=== PATIENT | female | born 1965 | race Caucasian/White ===

== ENCOUNTER 2021-02-11 15:15 | Inpatient (IN) | payer MEDICARE, SELFPAY ==
[2021-02-11] VITALS (10 sets, daily range): BP systolic 78–117; BP diastolic 41–69; PULSE 59–74; RESP 16–20; TEMP 36.6–37.1; O2SAT 87–95; BMI 31.7; BMI 31.9
--- NOTE | 2021-02-11 15:33 | EX.ED.DYSGE1 ---
HPI History of Present Illness Chief Complaint: General Illness Narrative Narrative: Patient presenting for evaluation secondary to generalized illness. Patient reports that she had a positive sick contact with coronavirus, and states that over the course of the last week she has been having typical symptoms. She states that it has been associated with fevers and chills, a minimally productive cough. She has decreased appetite. She denies any nausea or vomiting, but she does report that she had some loose watery diarrhea. Patient denies any chest pain. She does report that she is coughed up blood just a couple of times. Patient denies that she has significant shortness of breath, no underlying lung disease history. She does have a underlying history of hypertension. Review of systems otherwise negative. PFSH PFSH Home Medications dexamethasone [Decadron] 6 mg PO DAILY #5 tab 02/11/21 [Rx Last Taken Unknown] lisinopril-hydrochlorothiazide 1 tab PO DAILY 02/11/21 [History Last Taken Unknown] paroxetine HCl [Paxil] 15 mg PO DAILY 02/11/21 [History Last Taken Unknown] Allergy/AdvReac Type Severity Reaction Status Date / Time No Known Allergies Allergy Verified 02/11/21 15:18 Social History Smoking Status: Never smoker ROS [facility] ED Constitutional Constitutional ED: Reports chills and fever(s) ENT ENT ED: Denies rhinorrhea Cardiovascular Cardiovascular: Denies chest pain Respiratory/Chest Respiratory/Chest: Reports cough; Denies dyspnea Gastrointestinal Gastrointestinal: Reports other Details: Loss of appetite ; Denies abdominal pain, diarrhea, nausea or vomiting Genitourinary Genitourinary ED: Denies dysuria or hematuria Musculoskeletal Musculoskeletal: Reports myalgias; Denies back pain Integumentary Denies rash Neurologic Neurologic: Denies paresthesias or weakness Psychiatric Psychiatric: Denies depression Endocrine Endocrinology: Denies fatigue Allergic/Immunologic Allergic/Immunologic ED: Denies urticaria EXAM Physical Exam Const Vital Signs: 02/11/21 15:18 02/11/21 15:43 02/11/21 15:47 Temperature 98.6 F Temperature Source Oral Pulse Rate 74 65 Respiratory Rate 16 20 H Respiratory Pattern Normal Blood Pressure 105/57 L Blood Pressure Mean 73 Pulse Ox 92 95 Oxygen Delivery Method Room Air Room Air Positive well nourished and well developed General Appearance ED: well developed and NAD HEENT Reports moist mucous membranes Negative for trauma or tenderness Eyes EOMs intact bilaterally Neck no lymphadenopathy, supple and no JVD Chest Wall inspection of chest normal Resp normal respiratory effort and clear to auscultation bilaterally Cardio regular rate, regular rhythm, no murmurs and peripheral pulses 2+ throughout GI normal to inspection, nondistended, normoactive bowel sounds, non-tender and no masses Palpation: soft Back/Spine normal to inspection Extremity normal to inspection General Extremety ED: Negative for tenderness Neuro oriented x3 and no sensory deficits noted Sensorium / Orientation: alert Motor Exam: strength 5/5 throughout Psych mental status grossly normal Skin no rashes or lesions noted MDM MDM MDM Narrative Medical decision making narrative: Patient presented with symptoms consistent with likely coronavirus. I did obtain a rapid antigen test which is negative but I feel this likely is a false negative as the patient's chest x-ray seems very consistent with coronavirus as do her symptoms. Patient was ambulated in the emergency department, her saturations hovered around 92 to 90% on ambulation and on rest were about 95% she otherwise had stable vitals no tachycardia no dyspnea and no signs of clinical dehydration. Patient is otherwise healthy and well-appearing, not really think that she requires admission at this point. Due to her borderline oxygenation I will place the patient on a course of Decadron. First dose was given in the emergency department. Patient was educated on signs and symptoms which to return. Patient was discharged in stable condition. Radiography Chest X-Ray - ED: 1 View, Read by ED Physician, Right Infiltrate and Left Infiltrate Diagnostic Testing: Radiology Impression Chest X-Ray 02/11/21 17:00 IMPRESSION: Multilobar pulmonary infiltrates suggesting pneumonia. Electronically Signed: Alexandr Marin MD (Brooks) at 17:15 EDT , Service support , Discharge Plan Triage Chief Complaint: General Illness ED Provider: Abhay Brown Dx/Rx/DC Orders Clinical Impression: COVID-19 Instructions: Coronavirus Disease 2019 (COVID-19): Caring for Yourself or Others Prescriptions: New dexamethasone [Decadron] 6 mg tablet 6 mg PO DAILY Qty: 5 RF: 0 No Action paroxetine HCl [Paxil] 10 mg Tablet 15 mg PO DAILY RF: 0 lisinopril-hydrochlorothiazide 20-12.5 mg Tablet 1 tab PO DAILY RF: 0 Primary Care Provider: Care Physician,No Primary Referrals: Deejay Vidal MD [NON-STAFF] - 3-5 Days Care Physician,No Primary [Primary Care Provider] - Disposition Disposition: Home, self care
--- NOTE | 2021-02-11 17:00 | RAD_ITS ---
STUDY: X-RAY CHEST REASON FOR EXAM: Female, 55 years old. cough TECHNIQUE: AP COMPARISON: None. FINDINGS: Multilobar pulmonary infiltrates in the bilateral lungs. There is no demonstrated pleural abnormality. Normal size heart. Normal mediastinum and palomo. Normal visualized pulmonary arteries. Normal visualized aortic arch and descending thoracic aorta. Normal visualized thoracic spine. Normal visualized ribs, clavicles, and shoulders. There is no demonstrated abnormality of the visualized soft tissue structures of the upper abdomen. RAD/Chest 1 View (Portable) IMPRESSION: Multilobar pulmonary infiltrates suggesting pneumonia. Electronically Signed: Alexandr Marin MD (Brooks) at 17:15 EDT , Service support ,
--- NOTE | 2021-02-11 17:50 | ED.RN ---
pt hypotensive but denies any symptoms. notifed
[2021-02-11 18:23] LABS: Absolute Lymphocyte Count 0.89 X10^3/uL (0.83-4.51); Absolute Neutrophil Count 5.5 X10^3/uL (2.0-7.7); Basophil# 0.02 X10^3/uL; Basophil% 0.3 % (0-1); Hematocrit 36.3 % (37-47); Hemoglobin 12.3 g/dL (12.0-15.0); Lymphocyte # 0.89 X10^3/ul (0.83-4.51); Lymphocyte % 13.2 % (19-41); Mean Corp Hgb Conc 33.9 g/dL (32-36); Mean Corpuscular Hgb 29.6 pg (27.0-32.0); Mean Corpuscular Volume 87.3 fL (81-99); Mean Platelet Vol. 9.2 fl (6.2-12.0); Monocyte# 0.26 X10^3/uL; Monocyte% 3.9 % (0-10); NRBC Flagged by Analyzer 0 % (0-5); Neutrophil % 81.9 % (47-70); Platelet Count 234 K/mm3 (150-450); RBC Distribution Width CV 12.4 % (11.6-14.6); RBC Distribution Width SD 40.2 fl (35.1-43.9); Red Blood Count 4.16 M/mm3 (4.2-5.4); White Blood Count 6.7 K/mm3 (4.4-11.0)
[2021-02-11 18:40] LABS: ALB/GLOB Ratio 0.8 RATIO (0.9-2.4); AST(SGOT) 45 U/L (15-37); Alanine Aminotransfer ALT/SGPT 39 U/L (13-56); Albumin, Serum 3.2 g/dL (3.2-5.0); Alkaline Phosphatase 56 U/L (45-117); Anion Gap 10 (5-15); BUN 26 mg/dL (7-18); BUN/Creat Ratio 17.9 RATIO (10-20); Calcium,Total 8.3 mg/dL (8.5-10.1); Chloride 99 mmol/L (98-107); Creatinine, Serum 1.45 mg/dL (0.55-1.02); EST Glomerular Filtration Rate 40 mL/min (>60); Est Glom Filt Rate - Afr Amer 48 mL/min (>60); Estimated Creatinine Clearance 34.26 ml/min; Globulin 4.2 g/dL (2.2-4.2); Glucose 94 mg/dL (74-106); Potassium 2.8 mmol/L (3.5-5.1); Protein, Total 7.4 g/dL (6.4-8.2); Sodium Level 135 mmol/L (136-145)
[2021-02-11 18:51] LABS: Lactic Acid 0.9 mmol/L (0.4-1.9)
[2021-02-11] MEDS: dexAMETHasone 4 MG Tablet 6 MG PO (18:52)
--- NOTE | 2021-02-11 19:01 | PCM.HP.STD ---
HPI - General HPI Narrative GIOVANNY DANIELLE, is a 55 F who presented to [facility] on 02/11/2021 complaining of not feeling well. She reports that over the last week she has had chills, subjective fevers, mild dry cough, decreased appetite with decrease in sensation of smell and taste, intermittent loose watery diarrhea, but no nausea or vomiting. She reports that she has had sick contacts with COVID-19 with the last being last Friday. She reports she is not been vaccinated. On room air her oxygen saturations have been anywhere from 92 to 95%. I suspect with ambulation she would drop below 92%. She has been afebrile with a normal heart rate and was prescribed Decadron with the intent to discharge her home but then developed acute hypotension. It appears that she may have suffered a vagal event as she had a drop in her heart rate and blood pressure. At that point the emergency department physician would like her admitted given her hypotension. The patient does indicate on my review that her p.o. intake has been poor. Her CBC is fairly unremarkable. Her BMP shows mild hyponatremia with a sodium of 135, hypokalemia with a potassium of 2.8, and elevated BUN and creatinine with a serum creatinine of 1.45. And mild transaminitis. Her rapid Covid test was negative, however her chest x-ray shows multilobular pulmonary infiltrates in bilateral lungs consistent with Covid pneumonia. Covid PCR is pending on admission. She was given Decadron and IV fluids in the emergency department. We will admit her to the intensive care unit given her hypotension. If this resolves and her oxygen status maintained stable she may be able to be discharged tomorrow. [facility] Home Medications dexamethasone [Decadron] 6 mg PO DAILY #5 tab 02/11/21 [Rx Last Taken Unknown] lisinopril-hydrochlorothiazide 1 tab PO DAILY 02/11/21 [History Last Taken Unknown] paroxetine HCl [Paxil] 15 mg PO DAILY 02/11/21 [History Last Taken Unknown] Allergy/AdvReac Type Severity Reaction Status Date / Time No Known Allergies Allergy Verified 02/11/21 15:18 Social History Smoking Status: Never smoker ROS Review of Systems ROS Unobtainable: Denies due to encephalopathy, due to endotracheal tube, due to mental condition, due to mental status or other Constitutional Constitutional: Reports anorexia, chills, fatigue, fever(s), malaise and weakness; Denies night sweats Eyes Eyes: Denies blurry vision, change in eye color, change in vision, discharge from eye(s), double vision, erythema, eye pain, loss of vision or other ENT HEENT: Denies abnormal hearing, dysphagia, ear pain, epistaxis, headache(s), hearing loss, nasal congestion, nasal discharge, post nasal drip, sinus pressure, sore throat or other Cardiovascular Cardiovascular: Denies chest pain, claudication, dyspnea on exertion, edema, lightheadedness, orthopnea, palpitations, paroxysmal nocturnal dyspnea, rapid heart rate, syncope or other Respiratory/Chest Respiratory/Chest: Reports cough, shortness of breath at rest and shortness of breath with exertion; Denies dyspnea, excessive phlegm production, hemoptysis, productive cough, wheezing or other Gastrointestinal Gastrointestinal: Reports diarrhea and loose stools; Denies abdominal pain, coffee ground emesis, constipation, dyspepsia, hematemesis, hematochezia, melena, nausea, vomiting or other Genitourinary Genitourinary: Denies burning urination, difficulty urinating, dysuria, hematuria, nocturia, urinary frequency, urinary hesitancy, urinary incontinence, urinary urgency or other Musculoskeletal Musculoskeletal: Reports myalgias; Denies arthralgias, back pain, joint pain, joint stiffness, joint swelling, neck pain or other Neurologic Neurologic: Denies abnormal gait, abnormal speech, confusion, disequilibrium, dizziness, focal weakness, headache(s), numbness, paresthesias, seizure-like activity, seizures, syncope, tingling, tremor(s) or other Psychiatric Psychiatric: Denies anxiety, depression, homicidal ideation, suicidal ideation or other Endocrine Endocrinology: Denies change in body appearance, cold intolerance, excessive sweating, heat intolerance, polydipsia, polyuria or other Hematologic/Lymphatic Hematologic/Lymphatic: Denies anemia, easy bleeding, easy bruising, lymphadenopathy or other Allergic/Immunologic Allergic/Immunologic: Denies rhinitis, hives, eczemia, asthma or other Vital Signs Vital Signs Vital Signs: 02/11/21 15:18 02/11/21 15:43 02/11/21 15:47 Temperature 98.6 F Temperature Source Oral Pulse Rate 74 65 Respiratory Rate 16 20 H Respiratory Pattern Normal Blood Pressure 105/57 L Blood Pressure Mean 73 Pulse Ox 92 95 Oxygen Delivery Method Room Air Room Air 02/11/21 17:41 02/11/21 18:51 Temperature Temperature Source Pulse Rate 59 L 65 Respiratory Rate 18 20 H Respiratory Pattern Blood Pressure 78/41 L 114/69 Blood Pressure Mean 53 84 Pulse Ox 92 94 Oxygen Delivery Method Room Air Room Air Weight Weight: 78.653 kg Body Mass Index (BMI) 31.7 Physical Exam Const alert, oriented x3, no apparent distress, healthy appearing and well nourished Constitutional Narrative: Middle-aged white female, lying in bed, appears comfortable, blood pressure is improving with fluid bolus General Appearance: cooperative; Negative for uncooperative Orientation / Consciousness: Negative for confused, disoriented or lethargic HEENT normocephalic, head/scalp atraumatic and hearing grossly normal bilaterally HEENT Narrative: Mallampati 2, no thrush, fair dentition Mouth: moist mucous membranes abnormal parched Eyes PERRL, EOMs intact bilaterally and conjunctivae normal Neck no lymphadenopathy, supple, no JVD and no carotid bruits Resp normal respiratory effort, no retractions and no use of accessory muscles Resp Narrative: Diminished diffusely but clear Cardio regular rate, regular rhythm, S1 normal heart sound, S2 normal heart sound, no murmurs, no rub, no gallops, no clicks and no JVD GI normal to inspection, nondistended, normoactive bowel sounds, soft to palpation, non-tender and non-distended; Negative for hepatosplenomegaly Palpation: Negative for tender, guarding or hernia Extremity normal to inspection, full ROM and no clubbing, cyanosis or edema Peripheral Pulses: Yes pulses 2+ throughout Skin no rashes or lesions noted, no wounds, skin turgor normal, no jaundice, no petechiae and no mottling Neuro oriented x3, CN's II-XII intact bilaterally and moves all extremities Sensorium / Orientation: awake, alert, oriented to person, oriented to place and oriented to time Speech: speech normal Motor Exam: strength 5/5 throughout Psych affect normal Results Lab / Micro Data Attestation: I reviewed the patient's lab results. Result Diagrams: 02/11/21 18:10 02/11/21 18:10 Labs: Laboratory Results - last 24 hr 02/11/21 02/11/21 02/11/21 18:10 18:10 18:10 WBC 6.7 RBC 4.16 L Hgb 12.3 Hct 36.3 L MCV 87.3 MCH 29.6 MCHC 33.9 RDW Std Deviation 40.2 RDW Coeff of [place] 12.4 Plt Count 234 MPV 9.2 Immature Gran % (Auto) 0.700 Neut % (Auto) 81.9 H Lymph % (Auto) 13.2 L [place] % (Auto) 3.9 Eos % (Auto) 0.0 Baso % (Auto) 0.3 Absolute Neuts (auto) 5.5 Absolute Lymphs (auto) 0.89 Nucleated RBC % 0 Sodium 135 L Potassium 2.8 L Chloride 99 Carbon Dioxide 26.0 Anion Gap 10 BUN 26 H Creatinine 1.45 H Estim Creat Clear Calc 34.26 Est GFR (MDRD) Af Amer 48 L Est GFR (MDRD) Non-Af 40 L BUN/Creatinine Ratio 17.9 Glucose 94 Lactic Acid 0.9 Calcium 8.3 L Total Bilirubin 0.40 AST 45 H ALT 39 Alkaline Phosphatase 56 Total Protein 7.4 Albumin 3.2 Globulin 4.2 Albumin/Globulin Ratio 0.8 L Micro: Microbiology 02/11/21 15:35 SARS-CoV-2 Antigen (Rapid) - Final Mucosa - Nose Radiology Impression Chest X-Ray 02/11/21 17:00 IMPRESSION: Multilobar pulmonary infiltrates suggesting pneumonia. Electronically Signed: Alexandr Marin MD (Brooks) at 17:15 EDT , Service support , Assessment & Plan Assessment/Plan (1) COVID-19: (2) ROSALINO (acute kidney injury): (3) Hypokalemia: (4) Hypoxia: PLAN: COVID-19 pneumonia -Patient showing relative hypoxemia with oxygen saturations at 92% on room air -I suspect she would drop below 92 with exertion -Start Decadron 6 mg daily x10 days -Supportive care -No current need for remdesivir--> would start if patient develops worsening hypoxia as patient is approximately 6 days into symptoms -PCR pending -Chest x-ray shows multifocal bilateral infiltrates -Check D-dimer Hypotension -Suspect vagal reaction given bradycardia and hypotension at the same time -Hold antihypertensive -IV fluids -Continue to monitor -Lactate was within normal limits ROSALINO secondary to dehydration -Hydration -Repeat BMP in a.m. -Baseline is unknown -Hold lisinopril and HCTZ Mild hyponatremia -Suspect hypovolemic hyponatremia and this should correct with IV hydration -Repeat BMP in a.m. Hypokalemia -Potassium given in the emergency department -Repeat BMP in a.m. -Check a.m. mag History of hypertension -Antihypertensives on hold given hypotension in the emergency department Depression -Continue Paxil Obesity -Complicates overall clinical picture and outcomes DVT prophylaxis -Lovenox twice daily CODE STATUS -Full code Charges/Coding Visit Charges Inpatient E&M: 19974 Init Hosp L3
[2021-02-11] MEDS: Potassium Chloride 10mEq/100mL 10 MEQ/100 ML IV.SOLN. 100 MEQ IV BOLUS ×4 (19:10→23:17)
[2021-02-11] MEDS: Potassium Chloride Oral Tablet 20 MEQ PO (19:22)
[2021-02-11] MEDS: Acetaminophen 500 MG Tablet 1000 MG PO (20:44)
[2021-02-11 21:29] LABS: D-Dimer Quantitative (DVT/PE) 0.52 FEU/ug/m (0.27-0.49)
[2021-02-11] MEDS: 0.9% Normal Saline 1,000 ML 100 ML IV (22:21)
[2021-02-11] MEDS: Enoxaparin 40 MG/0.4 ML Syringe SC (22:21)
[2021-02-12] VITALS (15 sets, daily range): BP systolic 111–146; BP diastolic 49–66; PULSE 57–62; RESP 16–18; TEMP 36.6–37; O2SAT 64–96
[2021-02-12 05:11] LABS: Absolute Lymphocyte Count 0.58 X10^3/uL (0.83-4.51); Basophil# 0.01 X10^3/uL; Basophil% 0.1 % (0-1); Hematocrit 38.1 % (37-47); Hemoglobin 12.6 g/dL (12.0-15.0); Lymphocyte # 0.58 X10^3/ul (0.83-4.51); Lymphocyte % 7.5 % (19-41); Mean Corp Hgb Conc 33.1 g/dL (32-36); Mean Corpuscular Hgb 29.5 pg (27.0-32.0); Mean Corpuscular Volume 89.2 fL (81-99); Mean Platelet Vol. 9.5 fl (6.2-12.0); Monocyte# 0.15 X10^3/uL; Monocyte% 1.9 % (0-10); NRBC Flagged by Analyzer 0 % (0-5); Neutrophil # 6.95 X10^3/uL (2.7-7.7); Neutrophil % 89.9 % (47-70); POSITIVE DIFFERENTIAL YES; POSITIVE MORPHOLOGY YES; Platelet Count 240 K/mm3 (150-450); RBC Distribution Width CV 12.7 % (11.6-14.6); RBC Distribution Width SD 41.6 fl (35.1-43.9); Red Blood Count 4.27 M/mm3 (4.2-5.4); White Blood Count 7.7 K/mm3 (4.4-11.0)
[2021-02-12 05:24] LABS: Anion Gap 5 (5-15); BUN 20 mg/dL (7-18); BUN/Creat Ratio 23.4 RATIO (10-20); Calcium,Total 8.3 mg/dL (8.5-10.1); Chloride 109 mmol/L (98-107); Creatinine, Serum 0.86 mg/dL (0.55-1.02); EST Glomerular Filtration Rate 73 mL/min (>60); Est Glom Filt Rate - Afr Amer 88 mL/min (>60); Estimated Creatinine Clearance 57.77 ml/min; Glucose 147 mg/dL (74-106); Magnesium 2.3 mg/dL (1.6-2.6); Phosphorus 3.5 mg/dL (2.5-4.9); Sodium Level 141 mmol/L (136-145)
[2021-02-12 05:33] LABS: Differential Indicated SCAN CRITERIA MET
--- NOTE | 2021-02-12 07:33 | PCM.PN.HOSP ---
Subjective Subjective Patient is a 55-year-old lady who presented withCough fever and generalized weakness with prior Covid exposure. Patient apparently has not been vaccinated. Her assessment on admission was consistent with acute COVID-19 pneumonitis admitted to intensive care unit for further management Objective Data Objective Data Vital Signs: Vital Signs Temp Pulse Resp BP Pulse Ox 97.8 F 60 16 115/61 94 02/12/21 04:00 02/12/21 04:00 02/12/21 04:00 02/12/21 04:00 02/12/21 04:00 Oxygen Flow Rate (L/min) 2 Oxygen Delivery Method Nasal Cannula Weight: 78.8 kg Body Mass Index (BMI) 31.9 Intake & Output: Intake and Output for Last 24 Hours 02/10/21 02/11/21 02/12/21 23:59 23:59 23:59 Intake Total 793.33 / 793.33 100 / 100 Balance 793.33 / 793.33 100 / 100 Lab / Micro Data Result Diagrams: 02/12/21 04:30 02/12/21 04:30 Labs: Laboratory Results - last 24 hr 02/11/21 02/11/21 02/11/21 18:10 18:10 18:10 WBC 6.7 RBC 4.16 L Hgb 12.3 Hct 36.3 L MCV 87.3 MCH 29.6 MCHC 33.9 RDW Std Deviation 40.2 RDW Coeff of [place] 12.4 Plt Count 234 MPV 9.2 Immature Gran % (Auto) 0.700 Neut % (Auto) 81.9 H Lymph % (Auto) 13.2 L [place] % (Auto) 3.9 Eos % (Auto) 0.0 Baso % (Auto) 0.3 Absolute Neuts (auto) 5.5 Absolute Lymphs (auto) 0.89 Nucleated RBC % 0 D-Dimer Quant (PE/DVT) Sodium 135 L Potassium 2.8 L Chloride 99 Carbon Dioxide 26.0 Anion Gap 10 BUN 26 H Creatinine 1.45 H Estim Creat Clear Calc 34.26 Est GFR (MDRD) Af Amer 48 L Est GFR (MDRD) Non-Af 40 L BUN/Creatinine Ratio 17.9 Glucose 94 Lactic Acid 0.9 Calcium 8.3 L Phosphorus Magnesium Total Bilirubin 0.40 AST 45 H ALT 39 Alkaline Phosphatase 56 Total Protein 7.4 Albumin 3.2 Globulin 4.2 Albumin/Globulin Ratio 0.8 L COVID-19 (IRWIN) 02/11/21 02/11/21 02/12/21 18:30 21:07 04:30 WBC 7.7 RBC 4.27 Hgb 12.6 Hct 38.1 MCV 89.2 MCH 29.5 MCHC 33.1 RDW Std Deviation 41.6 RDW Coeff of [place] 12.7 Plt Count 240 MPV 9.5 Immature Gran % (Auto) 0.600 Neut % (Auto) 89.9 H Lymph % (Auto) 7.5 L [place] % (Auto) 1.9 Eos % (Auto) 0.0 Baso % (Auto) 0.1 Absolute Neuts (auto) 7.0 Absolute Lymphs (auto) 0.58 L Nucleated RBC % 0 D-Dimer Quant (PE/DVT) 0.52 H* Sodium Potassium Chloride Carbon Dioxide Anion Gap BUN Creatinine Estim Creat Clear Calc Est GFR (MDRD) Af Amer Est GFR (MDRD) Non-Af BUN/Creatinine Ratio Glucose Lactic Acid Calcium Phosphorus Magnesium Total Bilirubin AST ALT Alkaline Phosphatase Total Protein Albumin Globulin Albumin/Globulin Ratio COVID-19 (IRWIN) Detected 02/12/21 04:30 WBC RBC Hgb Hct MCV MCH MCHC RDW Std Deviation RDW Coeff of [place] Plt Count MPV Immature Gran % (Auto) Neut % (Auto) Lymph % (Auto) [place] % (Auto) Eos % (Auto) Baso % (Auto) Absolute Neuts (auto) Absolute Lymphs (auto) Nucleated RBC % D-Dimer Quant (PE/DVT) Sodium 141 Potassium 4.0 Chloride 109 H Carbon Dioxide 27.0 Anion Gap 5 BUN 20 H Creatinine 0.86 Estim Creat Clear Calc 57.77 Est GFR (MDRD) Af Amer 88 Est GFR (MDRD) Non-Af 73 BUN/Creatinine Ratio 23.4 H Glucose 147 H Lactic Acid Calcium 8.3 L Phosphorus 3.5 Magnesium 2.3 Total Bilirubin AST ALT Alkaline Phosphatase Total Protein Albumin Globulin Albumin/Globulin Ratio COVID-19 (IRWIN) Micro: Microbiology 02/11/21 15:35 Mucosa - Nose SARS-CoV-2 Antigen (Rapid) - Final Radiography Diagnostic Testing: Radiology Impression Chest X-Ray 02/11/21 17:00 IMPRESSION: Multilobar pulmonary infiltrates suggesting pneumonia. Electronically Signed: Alexandr Marin MD (Brooks) at 17:15 EDT , Service support , Physical Exam Narrative GENERAL: cooperative HEENT: Atraumatic; EYES; Anicteric, Normal Conjunctiva NECK; supple, normal thyroid, RESPIRATORY: Diminished to auscultation CARDIOVASCULAR: Regular S1 S2, GI: soft, normoactive bowel sounds, : No Renal angle tenderness; EXTREMITIES: No edema, no clubbing, MUSCULOSKELETAL: no muscle waisting NEURO: Awake; no lateralizing signs. SKIN: No Rash PSYCH; Flat affect Assessment & Plan Assessment/Plan (1) COVID-19: (2) ROSALINO (acute kidney injury): (3) Hypokalemia: (4) Hypoxia: PLAN: Patient is a 55-year-old lady who presented withCough fever and generalized weakness with prior Covid exposure. Patient apparently has not been vaccinated. Her assessment on admission was consistent with acute COVID-19 pneumonitis admitted to intensive care unit for further management 1. Acute hypoxic respiratory insufficiency secondary to SARS-CoV-2 pneumonia ?Admitted to intensive care unit managed with supplemental oxygen as well as p.o. Decadron and supportive management. Attempt to wean patient off oxygen was unsuccessful. Patient placed back on supplemental oxygen. Did encourage use of incentive spirometry 2. Hypotension ?Present on admission patient resuscitated with IV fluid her antihypertensives held 3. Acute kidney injury ?Secondary to dehydration and hypotension resuscitated with IV fluids kidney function back to baseline 4. Mild hyponatremia ?Secondary to hypovolemic hyponatremia managed with IV fluid 5. Hypokalemia -Corrected per protocol 6. Obesity with BMI of 31.8 ?Weight loss advised 7. Essential hypertension ?Antihypertensives on hold in view of patient presenting with hypotension 8. Depression ?Patient is on SSRI 9. DVT prophylaxis ?Lovenox Advance planning; given the fact the patient presented with SARS-CoV-2 pneumonitis did discuss with the patientregarding advanced directives as well as CODE STATUS. Did explain the various scenarios involved ( FULL CODE, DNR CCA, DNR CCA with no intubation, and DNR CC and what each meant) patient elected to full code with CPR and intubation if warranted. Order was placed. Time spent on discussion 18 minutes. Charges/Coding Visit Charges Inpatient E&M: 40615 Subs Hosp L3 Procedures Hospitalists Procedures: 24256 Advncd Care Plan 30 Min
[2021-02-12] MEDS: 0.9% Normal Saline 1,000 ML 100 ML IV ×2 (08:12→16:33)
[2021-02-12] MEDS: Enoxaparin 40 MG/0.4 ML Syringe SC ×2 (08:13→23:36)
[2021-02-12] MEDS: dexAMETHasone 2 MG TABLET 6 MG PO (08:13)
[2021-02-12] MEDS: PARoxetine 10 MG Tablet 15 MG PO (08:14)
--- NOTE | 2021-02-12 12:44 | NURSING ---
LIZETH initial assessment: Patient in Covid Isolation. Called patient cell and no answer, no bedside phone. Called patient Wain and answered- Introduced role of RN CM to patient and agreeable to participate in RN CM Assessment. Care providers, pharmacy, and demographics verified. Provided ICU main number to call and get an update, visitation policy, and bedside phone placed in patient room to s/w patient as patient cell phone is . Admit Dx: Covid PNA Re-Admit: No Barriers/Issues: Patient has electric if home oxygen is needed. aware since patient is self pay- if home O2 is required at DC then it will be private pay. Suggested Thermometer and Pulse Ox if does not already have one. Aware can obtain from a drug store. States that patient can isolate in seperate bedroom/bathroom from him and son. States has a good support system that can help her out during recovery/illness. PCP: Armando Bui Specialists: None Preferred Pharmacy: [facility] Insurance: None Rx Benefit: None LNOK: Philip Ballard LW/HPOA: None, Aware can complete with social service dept here as an inpatient and/or outpatient. Living Arrangements/ADLs: Lives with and younger son in a 2SH, bedroom on gnd level. 1 step to enter home. Denies him or son being ill at this time. Patient is independent with ambulation and ADLs. Transportation: Hired drivers DME: None HHC/SNF: None Goal: Home and aware Oxygen testing will be done prior to DC to assess need. Denies any other questions, concerns, issues or needs at this time [facility] DC planning. DC PLAN: Home with possible home oxygen- self pay. LIZETH Ortega
[2021-02-12] MEDS: Acetaminophen 325 MG Tablet 650 MG PO (15:51)
--- NOTE | 2021-02-12 23:32 | CPS ---
Pt could not tolerate wearing bipap at this time. Pt placed on HFNC @ 10L, SpO2 92%
[2021-02-13] VITALS (54 sets, daily range): BP systolic 50–194; BP diastolic 27–175; PULSE 52–95; RESP 12–33; TEMP 36.3–37.8; O2SAT 87–100
[2021-02-13] MEDS: 0.9% Normal Saline 1,000 ML 100 ML IV (04:05)
[2021-02-13 04:07] LABS: Absolute Lymphocyte Count 1.64 X10^3/uL (0.83-4.51); Absolute Neutrophil Count 18.1 X10^3/uL (2.0-7.7); Basophil# 0.06 X10^3/uL; Basophil% 0.3 % (0-1); Eosinophil# 0.06 X10^3/uL; Eosinophils% 0.3 % (0-5); Hematocrit 42.1 % (37-47); Hemoglobin 13.8 g/dL (12.0-15.0); Lymphocyte # 1.64 X10^3/ul (0.83-4.51); Lymphocyte % 7.8 % (19-41); Mean Corp Hgb Conc 32.8 g/dL (32-36); Mean Corpuscular Hgb 29.6 pg (27.0-32.0); Mean Corpuscular Volume 90.3 fL (81-99); Mean Platelet Vol. 9.3 fl (6.2-12.0); Monocyte# 0.72 X10^3/uL; Monocyte% 3.4 % (0-10); NRBC Flagged by Analyzer 0 % (0-5); Neutrophil # 18.14 X10^3/uL (2.7-7.7); Neutrophil % 86.2 % (47-70); Platelet Count 386 K/mm3 (150-450); Red Blood Count 4.66 M/mm3 (4.2-5.4)
[2021-02-13 04:21] LABS: Anion Gap 8 (5-15); BUN 13 mg/dL (7-18); BUN/Creat Ratio 18.3 RATIO (10-20); Calcium,Total 8.6 mg/dL (8.5-10.1); Chloride 105 mmol/L (98-107); Creatinine, Serum 0.71 mg/dL (0.55-1.02); EST Glomerular Filtration Rate 90 mL/min (>60); Est Glom Filt Rate - Afr Amer 109 mL/min (>60); Estimated Creatinine Clearance 69.98 ml/min; Glucose 127 mg/dL (74-106); Potassium 3.2 mmol/L (3.5-5.1); Sodium Level 141 mmol/L (136-145)
[2021-02-13] MEDS: LORazepam 0.5 MG Tablet PO (04:21)
--- NOTE | 2021-02-13 06:15 | NURSING ---
pt is maxed on airvo and oxygen levels are 88-90%. explained to pt that she needs to wear the bipap or there is a good possiblity that she will need to be intubated. Pt states that she can not wear the bipap because she panics. She is unsure if she wants to be intubated. I told pt to think about it and call family to make a decision sooner then later.
--- NOTE | 2021-02-13 06:17 | RAD_ITS ---
STUDY: X-RAY CHEST REASON FOR EXAM: Female, 55 years old. SOB TECHNIQUE: Single AP portable view of the chest. COMPARISON: Comparison is made with prior study dated 02/11/2021. FINDINGS: EKG electrodes are seen. Since prior study, there has been progressive bilateral patchy pulmonary infiltrates worse in the right infrahilar region. There is no demonstrated pleural abnormality. Normal size heart. Normal mediastinum and palomo. Normal visualized pulmonary arteries. Normal visualized aortic arch and descending thoracic aorta. Normal visualized thoracic spine. Normal visualized ribs, clavicles, and shoulders. There is no demonstrated abnormality of the visualized soft tissue structures of the upper abdomen. RAD/Chest 1 View (Portable) IMPRESSION: Progressive bilateral pulmonary infiltrates worse in the right infrahilar region Electronically Signed: Garcia Sales MD at 8:38 EDT , Service support ,
--- NOTE | 2021-02-13 07:14 | PCM.PN.HOSP ---
Subjective Subjective Patient seen her clinical condition deteriorated last night resulting in patient being placed on a level. Seen this a.m. dyspneic at rest. Was discussed with patient about possible intubation she apparently declined. Call was placed to patient's who is currently in to have a discussion with the . Also did discuss with pulmonary about starting patient on remdesivir Objective Data Objective Data Vital Signs: Vital Signs Temp Pulse Resp BP Pulse Ox 98 F 78 22 H 154/98 H 90 02/13/21 05:59 02/13/21 06:00 02/13/21 05:59 02/13/21 05:59 02/13/21 05:59 Oxygen Flow Rate (L/min) 4 Oxygen Delivery Method Airvo Weight: 82.4 kg Body Mass Index (BMI) 31.9 Intake & Output: Intake and Output for Last 24 Hours 02/11/21 02/12/21 02/13/21 23:59 23:59 23:59 Intake Total 793.33 / 793.33 0 / 0 1000 / 1000 Balance 793.33 / 793.33 2119 / 2119 1000 / 1000 Lab / Micro Data Result Diagrams: 02/13/21 03:45 02/13/21 03:45 Labs: Laboratory Results - last 24 hr 02/13/21 02/13/21 03:45 03:45 WBC 21.0 H RBC 4.66 Hgb 13.8 Hct 42.1 MCV 90.3 MCH 29.6 MCHC 32.8 RDW Std Deviation 43.0 RDW Coeff of [place] 13.0 Plt Count 386 MPV 9.3 Immature Gran % (Auto) 2.000 H Neut % (Auto) 86.2 H Lymph % (Auto) 7.8 L [place] % (Auto) 3.4 Eos % (Auto) 0.3 Baso % (Auto) 0.3 Absolute Neuts (auto) 18.1 H Absolute Lymphs (auto) 1.64 Nucleated RBC % 0 Sodium 141 Potassium 3.2 L Chloride 105 Carbon Dioxide 28.0 Anion Gap 8 BUN 13 Creatinine 0.71 Estim Creat Clear Calc 69.98 Est GFR (MDRD) Af Amer 109 Est GFR (MDRD) Non-Af 90 BUN/Creatinine Ratio 18.3 Glucose 127 H Calcium 8.6 Magnesium 2.0 Micro: Microbiology 02/11/21 15:35 Mucosa - Nose SARS-CoV-2 Antigen (Rapid) - Final Physical Exam Narrative GENERAL: Ill-looking and dyspneic at rest HEENT: Atraumatic; EYES; Anicteric, Normal Conjunctiva NECK; supple, normal thyroid, RESPIRATORY: Diminished to auscultation CARDIOVASCULAR: Regular S1 S2, GI: soft, normoactive bowel sounds, : No Renal angle tenderness; EXTREMITIES: No edema, no clubbing, MUSCULOSKELETAL: no muscle waisting NEURO: Awake; no lateralizing signs. SKIN: No Rash PSYCH; Flat affect Assessment & Plan Assessment/Plan (1) COVID-19: (2) ROSALINO (acute kidney injury): (3) Hypokalemia: (4) Hypoxia: PLAN: Patient is a 55-year-old lady who presented withCough fever and generalized weakness with prior Covid exposure. Patient apparently has not been vaccinated. Her assessment on admission was consistent with acute COVID-19 pneumonitis admitted to intensive care unit for further management 1. Acute hypoxic respiratory failure secondary to SARS-CoV-2 pneumonia ?Admitted to intensive care unit managed with supplemental oxygen as well as p.o. Decadron and supportive management. Attempt to wean patient off oxygen was unsuccessful. Patient placed back on supplemental oxygen. Did encourage use of incentive spirometry ?02/13/2021. Chest x-ray obtained last night demonstrated progressive bilateral pulmonary infiltrates worse than the right infrahilar region. Patient breathing status also deteriorated resulting in patient being placed on Airvo. Case was discussed with pulmonary medicine regarding initiation of remdesivir. Currently on antibiotic therapy for suspected superimposed bacterial infection. Plan is to have the family discussion regarding patient being possibly placed on the ventilator 2. Hypotension ?Present on admission patient resuscitated with IV fluid her antihypertensives held 3. Acute kidney injury ?Secondary to dehydration and hypotension resuscitated with IV fluids kidney function back to baseline 4. Mild hyponatremia ?Secondary to hypovolemic hyponatremia managed with IV fluid 5. Hypokalemia -Corrected per protocol 6. Obesity with BMI of 31.8 ?Weight loss advised 7. Essential hypertension ?Antihypertensives on hold in view of patient presenting with hypotension 8. Depression ?Patient is on SSRI 9. DVT prophylaxis ?Lovenox Prognosis; guarded Charges/Coding Visit Charges Inpatient E&M: 77068 Subs Hosp L3
[2021-02-13] MEDS: Furosemide 40 MG/4 ML Vial IV (07:49)
[2021-02-13 08:01] LABS: BNP,B-Type NATRIURETIC PEPTIDE 172.4 pg/mL (0-100)
--- NOTE | 2021-02-13 08:51 | CON.PCM.CC_ITS ---
Assessment & Plan Assessment/Plan (1) Acute hypoxemic respiratory failure: (2) COVID-19: PLAN: RECOMMENDATIONS: 1. Given worsening noted on chest x-ray, start empiric antimicrobials. 2. Continue Decadron as ordered. 3. Start remdesivir. Monitor liver and renal function. 4. Obtain infectious diseases consultation. 5. Following intubation, obtain arterial blood gas and send sputum for culture. 6. Attempt gentle diuresis as tolerated by hemodynamics and renal function. 7. Check BNP and pro calcitonin. Obtain MRSA screen. IMPRESSIONS: 1. Acute hypoxemic respiratory failure The patient was initially admitted to the hospital with approximately 1 week of Covid-like symptoms, but has experienced progressive decline in her respiratory status. She was initially only being maintained on Decadron. However, in light of her clinical instability, the patient was started on remdesivir this morning. In addition, given her worsened appearance of her chest x-ray, empiric antimicrobials were initiated. We will plan to continue Decadron accordingly. Infectious diseases consultation will be obtained. Sputum will be sent for olivia garcia. 2. Acute kidney injury Likely prerenal in etiology as creatinine normalized with volume expansion. Fluids have been discontinued at this time. Plan to continue to monitor urine output. No current indication for renal replacement therapy. 3. Obesity/hypertension/depression Complicates care, management, recovery and prognosis. Continue home medications as indicated. TIME: 90 minutes of critical care time, inclusive of procedures, was spent addressing the patient's acute hypoxemic respiratory failure, COVID-19 pneumonia, acute kidney injury, review of all data and collaboration with the care team. ([id number]) HPI Consult Data Date of Consult: 02/14/21 HPI Narrative Reason for Consultation: Acute Hypoxemic Respiratory Failure HPI Narrative: The patient is a 55-year-old female, with a history as outlined below, who presented to the emergency department on February 11 with fevers, chills, malaise, shortness of breath and cough. The patient did have exposure to sick contacts with COVID-19. The patient was approximately 6 days into her Covid symptoms when she presented to the hospital. On presentation to the emergency department, the patient was noted to be afebrile, but was hypotensive. Initial laboratory evaluation revealed a normal white blood cell count. Coagulation profile revealed a D-dimer of 0.52. Chemistry profile was notable for a sodium of 135, potassium of 2.8 and creatinine of 1.45. Lactate was within normal limits. Coronavirus PCR was positive. Initial chest x-ray revealed multilobar airspace disease. The patient was initially placed on supplemental IV fluids and Decadron. She was admitted to the hospital for further management. Over the course of her hospitalization, the patient developed worsening respiratory status. She is currently documented to be overall net +4.1 L for the hospital admission. Last evening, the patient had to be transition from nasal cannula oxygen to heated high flow, and as of this morning, was requiring 60 L/min and 92% FiO2 with marginal oxygen saturations noted. The patient was also notably tachypneic. Fluids were discontinued and the patient was given a one-time dose of IV Lasix. Orders for remdesivir were placed. Unfortunately, the patient remained unstable from a respiratory perspective. I had a very amber discussion with the patient and her family at the bedside regarding my concerns for her continued clinical decompensation. Following this, the decision was made to proceed with intubation. Intubation Indication: Impending respiratory failure Consent was obtained from: Patient The patient was placed in the appropriate sniffing position. Preoxygenated sedation via [id number] was provided for a minimum of 3 minutes. The patient had continuous cardiac as well as pulse oximetry monitoring during the p rocedure. Procedure sedation was provided by the administration of 4 mg of Versed and 20 mg of etomidate. Direct laryngoscopy was then performed using a number 3 MAC blade, which revealed a grade 1 view. A 7.5 mm endotracheal tube was visualized advancing between the cords to the level of 24 cm at the lip. The stylette was then removed and discarded. Tube placement was confirmed by fogging in the tube along with equal and bilateral breath sounds. Colorimetric change was visualized on the CO2 meter. The cuff was then inflated and the tube secured using a commercially available device. A good pulse oximetry waveform was seen on the monitor throughout the procedure. A portable chest x-ray has been ordered to confirm appropriate placement. The patient tolerated the procedure well. [facility] Medical History (Updated 02/13/21 @ 10:[address] Herbie Madison DO) Anxiety Depression Hypertension Home Medications dexamethasone [Decadron] 6 mg PO DAILY #5 tab 02/11/21 [Rx Last Taken Unknown] lisinopril-hydrochlorothiazide 1 tab PO DAILY 02/11/21 [History Last Taken Unknown] paroxetine HCl [Paxil] 15 mg PO DAILY 02/11/21 [History Last Taken Unknown] Allergy/AdvReac Type Severity Reaction Status Date / Time No Known Allergies Allergy Verified 02/11/21 15:18 Social History Smoking Status: Never smoker ROS Constitutional Constitutional: Reports chills, fatigue, fever(s) and malaise Eyes Eyes: Denies blurry vision or change in vision ENT HEENT: Reports dizziness and headache(s) Cardiovascular Cardiovascular: Reports dyspnea; Denies chest pain Respiratory/Chest Respiratory/Chest: Reports cough Gastrointestinal Gastrointestinal: Denies abdominal pain, diarrhea, nausea or vomiting Genitourinary Genitourinary: Denies difficulty urinating Musculoskeletal Musculoskeletal: Denies arthralgias or back pain Integumentary Integumentary: Denies lesions, rash or skin ulcer Neurologic Neurologic: Denies abnormal gait Psychiatric Psychiatric: Denies anxiety or depression Endocrine Endocrinology: Reports fatigue Hematologic/Lymphatic Hematologic/Lymphatic: Denies easy bleeding or easy bruising Physical Exam Const alert General Appearance: cooperative and ill appearing HEENT normocephalic and head/scalp atraumatic Eyes PERRL, EOMs intact bilaterally and conjunctivae normal Neck supple General: trachea midline Resp Effort and Inspection: tachypneic Auscultation: diminished lung sounds; Negative for rales, rhonchi or wheezes Cardio regular rate and regular rhythm GI normal to inspection, nondistended, normoactive bowel sounds Extremity no clubbing, cyanosis or edema Skin no rashes or lesions noted Neuro oriented x3, moves all extremities and no focal motor deficits Psych cooperative and affect normal Lab / Micro Data Result Diagrams: 02/14/21 03:20 02/14/21 03:20 Labs: Laboratory Results - last 24 hr 02/13/21 02/13/21 02/13/21 03:45 03:45 03:45 WBC 21.0 H RBC 4.66 Hgb 13.8 Hct 42.1 MCV 90.3 MCH 29.6 MCHC 32.8 RDW Std Deviation 43.0 RDW Coeff of [place] 13.0 Plt Count 386 MPV 9.3 Immature Gran % (Auto) 2.000 H Neut % (Auto) 86.2 H Lymph % (Auto) 7.8 L [place] % (Auto) 3.4 Eos % (Auto) 0.3 Baso % (Auto) 0.3 Absolute Neuts (auto) 18.1 H Absolute Lymphs (auto) 1.64 Nucleated RBC % 0 Sodium 141 Potassium 3.2 L Chloride 105 Carbon Dioxide 28.0 Anion Gap 8 BUN 13 Creatinine 0.71 Estim Creat Clear Calc 69.98 Est GFR (MDRD) Af Amer 109 Est GFR (MDRD) Non-Af 90 BUN/Creatinine Ratio 18.3 Glucose 127 H Calcium 8.6 Magnesium 2.0 B-Natriuretic Peptide 172.4 H Radiology Impression Chest X-Ray 02/13/21 06:17 IMPRESSION: Progressive bilateral pulmonary infiltrates worse in the right infrahilar region Electronically Signed: Gracia Sales MD at 8:38 EDT , Service support , Charges/Coding Procedures Hospitalists Procedures: 57785 Critial Care 1st Hr Multi Select Codes Hospitalists' Procedures Procedures: 61335 Critial Care Addl 30 Min
[2021-02-13 09:00] LABS: Procalcitonin 0.12 ng/mL (0.00-0.09)
[2021-02-13] MEDS: Etomidate 20 MG/10 ML Vial IV (09:21)
[2021-02-13] MEDS: Midazolam 2 MG/2 ML Syringe 4 MG IV (09:21)
[2021-02-13] MEDS: Propofol 10MG/Ml 1,000 MG/100 ML Bottle 4.9 MG CONT INF ×2 (09:25→11:37)
--- NOTE | 2021-02-13 10:00 | RAD_ITS ---
STUDY: X-RAY CHEST REASON FOR EXAM: Female, 55 years old. ETT and OGT placement TECHNIQUE: Single AP portable view of the chest. COMPARISON: Comparison is made with prior study done earlier today. FINDINGS: An endotracheal tube is seen. The tip is at 4.7 cm proximal to the cody. A nasogastric tube is present with the tip in the distal stomach. EKG electrodes are seen. Stable appearance of the bilateral pulmonary infiltrates. There is no demonstrated pleural abnormality. Normal size heart. Normal mediastinum and palomo. Normal visualized pulmonary arteries. Normal visualized aortic arch and descending thoracic aorta. Normal visualized thoracic spine. Normal visualized ribs, clavicles, and shoulders. There is no demonstrated abnormality of the visualized soft tissue structures of the upper abdomen. RAD/Chest 1 View (Portable) IMPRESSION: The tip of the endotracheal tube is at 4.7 cm proximal to the cody. The tip of the orogastric tube is in the distal portion of the stomach. The lungs are unchanged. Electronically Signed: Garcia Sales MD at 10:16 EDT , Service support ,
[2021-02-13] MEDS: Succinylcholine Chloride 200 MG/10 ML Vial 100 MG IV (10:06)
--- NOTE | 2021-02-13 10:30 | NURSING ---
Dr. Madison and RTs at bedside for intubation of patient at 0915. Versed 4 mg IV and etomidate 20mg IV given at 0921 Patient successfully intubated at 0924, however patient was very agitated and coughing continuously despite sedation. Succinylcholine 100mg given at 1006. Sedation further adjusted after medication given.
[2021-02-13 11:09] LABS: Alkaline Phosphatase 67 U/L (45-117); CPK Total, Creatine Kinase 176 U/L (26-192); Triglycerides 238 mg/dL
[2021-02-13 11:10] LABS: Base Excess 3 mmol/L (-2 to +2); Bicarbonate 27.3 mmol/L (22-26); Blood Gas Specimen Type ART; FI02 100; Mode AC; O2 Delivery Device Adult Vent; PEEP 10; PO2 156 mmHG (75-100); RR 14; SITE R Radial; SO2 99 % (95-99); Total Carbon Dioxide 29 mmol/L; Vt 400; pCO2 43.2 mmHg (35-45); pH 7.41 (7.35-7.45)
[2021-02-13] MEDS: 0.9% Saline Lock 10 ML Syringe IV (11:23)
[2021-02-13] MEDS: Enoxaparin 40 MG/0.4 ML Syringe SC ×2 (11:39→21:03)
[2021-02-13] MEDS: Chlorhexidine 15 ML PO ×2 (11:40→21:03)
[2021-02-13 12:57] LABS: M R Staph aureus DNA By PCR Negative (Negative); Probe Check PASS; Specimen Processing Control PASS
--- NOTE | 2021-02-13 13:34 | PCM.RX.CS ---
Consult Pharmacy has been consulted to manage selected antiobiotic: Vancomycin Type of Consult: New start Labs: Sodium 141 mmol/L (136-145) 02/13/21 03:45 Potassium 3.2 mmol/L (3.5-5.1) L 02/13/21 03:45 Chloride 105 mmol/L (98-107) 02/13/21 03:45 Carbon Dioxide 28.0 mmol/L (21.0-32.0) 02/13/21 03:45 Anion Gap 8 (5-15) 02/13/21 03:45 BUN 13 mg/dL (7-18) 02/13/21 03:45 Creatinine 0.71 mg/dL (0.55-1.02) 02/13/21 03:45 Est GFR (MDRD) Af Amer 109 mL/min (>60) 02/13/21 03:45 Est GFR (MDRD) Non-Af 90 mL/min (>60) 02/13/21 03:45 BUN/Creatinine Ratio 18.3 RATIO (10-20) 02/13/21 03:45 Glucose 127 mg/dL (74-106) H 02/13/21 03:45 Microbiology: Microbiology 02/11/21 15:35 Mucosa - Nose SARS-CoV-2 Antigen (Rapid) - Final Weight used for dosin.4 kg Estimated Creatinine Clearance: 88ML/MIN Goal Trough: 15-20 mcg/mL Pharmacy Plan for Drug Dosing: Give initial load dose of 2000mg IV x1, then continue with 1500mg IV q12h per [facility] dosing protocol. A trough level will be checked before the 4th overall dose. The patient's CrCl of 88ml/min was calculated using an adjusted body weight of 63kg due to the patient being more than 120% over ideal body weight. Pharmacy Service will continue to monitor and adjust dosing as required. Follow-Up Labs: Trough Vancomycin Labs to be done on [date and time ordered]: 02/14/21 23:30
[2021-02-13] MEDS: dexAMETHasone 2 MG TABLET 6 MG GT (16:21)
[2021-02-14] VITALS (40 sets, daily range): BP systolic 98–198; BP diastolic 51–92; PULSE 51–98; RESP 14–22; TEMP 37.4–37.9; O2SAT 90–98; BMI 32.9
[2021-02-14 03:31] LABS: Absolute Lymphocyte Count 1.31 X10^3/uL (0.83-4.51); Absolute Neutrophil Count 9.4 X10^3/uL (2.0-7.7); Basophil# 0.04 X10^3/uL; Basophil% 0.3 % (0-1); Differential Indicated SCAN CRITERIA MET; Hematocrit 36.2 % (37-47); Hemoglobin 11.7 g/dL (12.0-15.0); Lymphocyte # 1.31 X10^3/ul (0.83-4.51); Lymphocyte % 11.3 % (19-41); Mean Corp Hgb Conc 32.3 g/dL (32-36); Mean Corpuscular Hgb 29.8 pg (27.0-32.0); Mean Corpuscular Volume 92.1 fL (81-99); Mean Platelet Vol. 8.7 fl (6.2-12.0); Monocyte# 0.41 X10^3/uL; Monocyte% 3.5 % (0-10); NRBC Flagged by Analyzer 0 % (0-5); Neutrophil # 9.44 X10^3/uL (2.7-7.7); Neutrophil % 81.9 % (47-70); POSITIVE MORPHOLOGY YES; Platelet Count 387 K/mm3 (150-450); RBC Distribution Width CV 13.3 % (11.6-14.6); RBC Distribution Width SD 45.6 fl (35.1-43.9); Red Blood Count 3.93 M/mm3 (4.2-5.4); White Blood Count 11.6 K/mm3 (4.4-11.0)
[2021-02-14 03:48] LABS: ALB/GLOB Ratio 0.6 RATIO (0.9-2.4); AST(SGOT) 37 U/L (15-37); Alanine Aminotransfer ALT/SGPT 37 U/L (13-56); Albumin, Serum 2.6 g/dL (3.2-5.0); Alkaline Phosphatase 57 U/L (45-117); Anion Gap 8 (5-15); BUN 24 mg/dL (7-18); BUN/Creat Ratio 29.8 RATIO (10-20); Calcium,Total 8.3 mg/dL (8.5-10.1); Chloride 111 mmol/L (98-107); EST Glomerular Filtration Rate 78 mL/min (>60); Est Glom Filt Rate - Afr Amer 95 mL/min (>60); Globulin 4.3 g/dL (2.2-4.2); Glucose 133 mg/dL (74-106); Potassium 3.7 mmol/L (3.5-5.1); Protein, Total 6.9 g/dL (6.4-8.2); Sodium Level 146 mmol/L (136-145)
--- NOTE | 2021-02-14 06:15 | PCM.PN.INT ---
Assessment & Plan Assessment/Plan (1) Acute hypoxemic respiratory failure: (2) COVID-19: PLAN: RECOMMENDATIONS: 1. Continue to wean FiO2 and PEEP to maintain oxygen saturations at or above 90%. 2. Restart home antihypertensives. 3. Continue empiric antimicrobials. 4. Continue remdesivir to complete treatment course. Continue to monitor liver and renal function. 5. Continue Decadron to complete 10-day treatment course. 6. Continue tube feeds as tolerated. 7. Continue appropriate ICU prophylaxis. IMPRESSIONS: 1. Acute hypoxemic respiratory failure The patient was initially admitted to the hospital with approximately 1 week of Covid-like symptoms, but experienced progressive decline in her respiratory status. She was initially only being maintained on Decadron. However, in light of her clinical instability, the patient was started on remdesivir as well. In addition, given her worsened appearance of her chest x-ray, empiric antimicrobials were initiated. We will plan to continue Decadron accordingly. Infectious diseases is also following to assist with medical management. 2. Acute kidney injury Improved. Likely prerenal in etiology as creatinine normalized with volume expansion. Fluids have been discontinued at this time. Plan to continue to monitor urine output. No current indication for renal replacement therapy. 3. Obesity/hypertension/depression Complicates care, management, recovery and prognosis. Continue home medications as indicated. TIME: 38 minutes of critical care time, independent of procedures, was spent addressing the patient's acute hypoxemic respiratory failure, COVID-19 pneumonia, acute kidney injury, review of all data and collaboration with the care team. ([id number]) Subjective Subjective The patient was seen and examined at the bedside this morning. Events from the last 24 hours have been reviewed. The patient is currently afebrile, hemodynamically stable and maintaining appropriate oxygen saturations on assist control mode of mechanical ventilation with an FiO2 requirement of 50%. The patient is currently documented to be overall net +5 L for the hospital admission. Liver and renal function are stable. The patient remains on empiric antimicrobials, remdesivir and Decadron. Objective Data Objective Data The patient's most recent lab work, culture data and imaging studies have all been personally reviewed. MRSA screen was negative. Coronavirus PCR was positive on February 11. Blood and sputum cultures are pending. Vital Signs: Vital Signs Temp Pulse Resp BP Pulse Ox 99.3 F H 85 18 171/62 H 90 06/16/21 02:00 02/14/21 06:03 02/14/21 06:03 02/14/21 05:00 02/14/21 06:03 Oxygen Flow Rate (L/min) 60 Oxygen Delivery Method Mechanical Ventilator Weight: 180 lb 1.883 oz Body Mass Index (BMI) 31.9 Intake & Output: Intake and Output for Last 24 Hours 02/12/21 02/13/21 02/14/21 23:59 23:59 23:59 Intake Total 2119 / 2119 2481.36 / 2496.36 668.75 / 668.75 Output Total 880 / 930 110 / 110 Balance 2119 / 2119 1601.36 / 1566.36 558.75 / 558.75 Lab / Micro Data Attestation: I reviewed the patient's lab results. Result Diagrams: 02/15/21 03:30 02/15/21 03:30 Labs: Laboratory Results - last 24 hr 02/13/21 02/13/21 02/13/21 03:45 03:45 07:55 WBC RBC Hgb Hct MCV MCH MCHC RDW Std Deviation RDW Coeff of [place] Plt Count MPV Immature Gran % (Auto) Neut % (Auto) Lymph % (Auto) [place] % (Auto) Eos % (Auto) Baso % (Auto) Absolute Neuts (auto) Absolute Lymphs (auto) Nucleated RBC % Sodium Potassium Chloride Carbon Dioxide Anion Gap BUN Creatinine Estim Creat Clear Calc Est GFR (MDRD) Af Amer Est GFR (MDRD) Non-Af BUN/Creatinine Ratio Glucose Calcium Total Bilirubin AST ALT Alkaline Phosphatase 67 Total Creatine Kinase 176 B-Natriuretic Peptide 172.4 H Total Protein Albumin Globulin Albumin/Globulin Ratio Triglycerides 238 H Procalcitonin MRSA (PCR) Negative 02/13/21 02/14/21 02/14/21 08:20 03:20 03:20 WBC 11.6 H RBC 3.93 L Hgb 11.7 L Hct 36.2 L MCV 92.1 MCH 29.8 MCHC 32.3 RDW Std Deviation 45.6 H RDW Coeff of [place] 13.3 Plt Count 387 MPV 8.7 Immature Gran % (Auto) 3.000 H Neut % (Auto) 81.9 H Lymph % (Auto) 11.3 L [place] % (Auto) 3.5 Eos % (Auto) 0.0 Baso % (Auto) 0.3 Absolute Neuts (auto) 9.4 H Absolute Lymphs (auto) 1.31 Nucleated RBC % 0 Sodium 146 H Potassium 3.7 Chloride 111 H Carbon Dioxide 27.0 Anion Gap 8 BUN 24 H Creatinine 0.80 Estim Creat Clear Calc 62.10 Est GFR (MDRD) Af Amer 95 Est GFR (MDRD) Non-Af 78 BUN/Creatinine Ratio 29.8 H Glucose 133 H Calcium 8.3 L Total Bilirubin 0.40 AST 37 ALT 37 Alkaline Phosphatase 57 Total Creatine Kinase B-Natriuretic Peptide Total Protein 6.9 Albumin 2.6 L Globulin 4.3 H Albumin/Globulin Ratio 0.6 L Triglycerides Procalcitonin 0.12 H MRSA (PCR) Micro: Microbiology 02/11/21 15:35 Mucosa - Nose SARS-CoV-2 Antigen (Rapid) - Final ABG Data ABG results: ABG 02/13/21 11:07 Specimen Type ART Sample Site R Radial pH 7.41 Bicarbonate Actual 27.3 H Total CO2 29 Base Excess 3 H O2 Saturation 99 O2 % 100 ABG pCO2 43.2 ABG pO2 156 H Respiration Rate 14 O2 Delivery Device Adult Vent Vent Mode AC Tidal Volume 400 POC PEEP 10 Radiography Diagnostic Testing: Radiology Impression Chest X-Ray 02/13/21 06:17 IMPRESSION: Progressive bilateral pulmonary infiltrates worse in the right infrahilar region Electronically Signed: Garcia Sales MD at 8:38 EDT , Service support , Chest X-Ray 02/13/21 10:00 IMPRESSION: The tip of the endotracheal tube is at 4.7 cm proximal to the cody. The tip of the orogastric tube is in the distal portion of the stomach. The lungs are unchanged. Electronically Signed: Garcia Sales MD at 10:16 EDT , Service support , Physical Exam Const no apparent distress General Appearance: patient mechanically ventilated HEENT normocephalic and head/scalp atraumatic Mouth: endotracheal tube in place and OG tube in place Eyes PERRL, EOMs intact bilaterally and conjunctivae normal Neck supple General: trachea midline Resp Auscultation: diminished lung sounds; Negative for rales, rhonchi or wheezes Cardio regular rate and regular rhythm GI normal to inspection, nondistended, normoactive bowel sounds Extremity no clubbing, cyanosis or edema Skin no rashes or lesions noted Neuro no focal motor deficits Sensorium / Orientation: sedated on vent Charges/Coding Procedures Hospitalists Procedures: 83100 Critial Care 1st Hr
--- NOTE | 2021-02-14 07:19 | PCM.PN.HOSP ---
Subjective Subjective Patient clinical condition deteriorated the day prior resulting in patient being intubated and placed on the vent. Was also started on remdesivir. Attempts at weaning this a.m. unsuccessful Objective Data Objective Data Vital Signs: Vital Signs Temp Pulse Resp BP Pulse Ox 99.5 F H 89 22 H 164/80 H 94 02/14/21 07:00 02/14/21 07:15 02/14/21 07:15 02/14/21 07:00 02/14/21 07:15 Oxygen Flow Rate (L/min) 60 Oxygen Delivery Method Mechanical Ventilator Weight: 81.7 kg Body Mass Index (BMI) 31.9 Intake & Output: Intake and Output for Last 24 Hours 02/12/21 02/13/21 02/14/21 23:59 23:59 23:59 Intake Total 2119 / 0 2481.36 / 2496.36 668.75 / 668.75 Output Total 880 / 930 180 / 180 Balance 2119 / 0 1601.36 / 1566.36 488.75 / 488.75 Lab / Micro Data Result Diagrams: 02/14/21 03:20 02/14/21 03:20 Labs: Laboratory Results - last 24 hr 02/13/21 02/13/21 02/13/21 03:45 03:45 07:55 WBC RBC Hgb Hct MCV MCH MCHC RDW Std Deviation RDW Coeff of [place] Plt Count MPV Immature Gran % (Auto) Neut % (Auto) Lymph % (Auto) [place] % (Auto) Eos % (Auto) Baso % (Auto) Absolute Neuts (auto) Absolute Lymphs (auto) Nucleated RBC % Sodium Potassium Chloride Carbon Dioxide Anion Gap BUN Creatinine Estim Creat Clear Calc Est GFR (MDRD) Af Amer Est GFR (MDRD) Non-Af BUN/Creatinine Ratio Glucose Calcium Total Bilirubin AST ALT Alkaline Phosphatase 67 Total Creatine Kinase 176 B-Natriuretic Peptide 172.4 H Total Protein Albumin Globulin Albumin/Globulin Ratio Triglycerides 238 H Procalcitonin MRSA (PCR) Negative 02/13/21 02/14/21 02/14/21 08:20 03:20 03:20 WBC 11.6 H RBC 3.93 L Hgb 11.7 L Hct 36.2 L MCV 92.1 MCH 29.8 MCHC 32.3 RDW Std Deviation 45.6 H RDW Coeff of [place] 13.3 Plt Count 387 MPV 8.7 Immature Gran % (Auto) 3.000 H Neut % (Auto) 81.9 H Lymph % (Auto) 11.3 L [place] % (Auto) 3.5 Eos % (Auto) 0.0 Baso % (Auto) 0.3 Absolute Neuts (auto) 9.4 H Absolute Lymphs (auto) 1.31 Nucleated RBC % 0 Sodium 146 H Potassium 3.7 Chloride 111 H Carbon Dioxide 27.0 Anion Gap 8 BUN 24 H Creatinine 0.80 Estim Creat Clear Calc 62.10 Est GFR (MDRD) Af Amer 95 Est GFR (MDRD) Non-Af 78 BUN/Creatinine Ratio 29.8 H Glucose 133 H Calcium 8.3 L Total Bilirubin 0.40 AST 37 ALT 37 Alkaline Phosphatase 57 Total Creatine Kinase B-Natriuretic Peptide Total Protein 6.9 Albumin 2.6 L Globulin 4.3 H Albumin/Globulin Ratio 0.6 L Triglycerides Procalcitonin 0.12 H MRSA (PCR) Micro: Microbiology 02/11/21 15:35 Mucosa - Nose SARS-CoV-2 Antigen (Rapid) - Final ABG Data ABG results: ABG 02/13/21 11:07 Specimen Type ART Sample Site R Radial pH 7.41 Bicarbonate Actual 27.3 H Total CO2 29 Base Excess 3 H O2 Saturation 99 O2 % 100 ABG pCO2 43.2 ABG pO2 156 H Respiration Rate 14 O2 Delivery Device Adult Vent Vent Mode AC Tidal Volume 400 POC PEEP 10 Radiography Diagnostic Testing: Radiology Impression Chest X-Ray 02/13/21 06:17 IMPRESSION: Progressive bilateral pulmonary infiltrates worse in the right infrahilar region Electronically Signed: Garcia Sales MD at 8:38 EDT , Service support , Chest X-Ray 02/13/21 10:00 IMPRESSION: The tip of the endotracheal tube is at 4.7 cm proximal to the cody. The tip of the orogastric tube is in the distal portion of the stomach. The lungs are unchanged. Electronically Signed: Garcia Sales MD at 10:16 EDT , Service support , Physical Exam Narrative GENERAL: Awake on the vent HEENT: Atraumatic; EYES; Anicteric, Normal Conjunctiva NECK; supple, normal thyroid, RESPIRATORY: Diminished to auscultation CARDIOVASCULAR: Regular S1 S2, GI: soft, normoactive bowel sounds, : No Renal angle tenderness; EXTREMITIES: No edema, no clubbing, MUSCULOSKELETAL: no muscle waisting NEURO: Awake; no lateralizing signs. SKIN: No Rash PSYCH; Flat affect Assessment & Plan Assessment/Plan (1) COVID-19: (2) ROSALINO (acute kidney injury): (3) Hypokalemia: (4) Hypoxia: PLAN: Patient is a 55-year-old lady who presented withCough fever and generalized weakness with prior Covid exposure. Patient apparently has not been vaccinated. Her assessment on admission was consistent with acute COVID-19 pneumonitis admitted to intensive care unit for further management 1. Acute hypoxic respiratory failure secondary to SARS-CoV-2 pneumonia ?Admitted to intensive care unit managed with supplemental oxygen as well as p.o. Decadron and supportive management. Attempt to wean patient off oxygen was unsuccessful. Patient placed back on supplemental oxygen. Did encourage use of incentive spirometry ?02/13/2021. Chest x-ray obtained last night demonstrated progressive bilateral pulmonary infiltrates worse than the right infrahilar region. Patient breathing status also deteriorated resulting in patient being placed on Airvo. Case was discussed with pulmonary medicine regarding initiation of remdesivir. Currently on antibiotic therapy for suspected superimposed bacterial infection. Plan is to have the family discussion regarding patient being possibly placed on the ventilator -02/14/2021 Patient clinical condition deteriorated the day prior resulting in patient being intubated and placed on the vent. Was also started on remdesivir. Attempts at weaning this a.m. unsuccessful 2. Hypotension ?Present on admission patient resuscitated with IV fluid her antihypertensives held 3. Acute kidney injury ?Secondary to dehydration and hypotension resuscitated with IV fluids kidney function back to baseline 4. Mild hyponatremia ?Secondary to hypovolemic hyponatremia managed with IV fluid 5. Hypokalemia -Corrected per protocol 6. Obesity with BMI of 31.8 ?Weight loss advised 7. Essential hypertension ?Antihypertensives on hold in view of patient presenting with hypotension 8. Depression ?Patient is on SSRI 9. DVT prophylaxis ?Lovenox Prognosis; guarded Charges/Coding Visit Charges Inpatient E&M: 80762 Subs Hosp L3
--- NOTE | 2021-02-14 10:24 | EX.NTREPO ---
Medical Nutrition Therapy - History Nutrition Services has been consulted to:: Manage nutrient details of diet order, Manage enteral nutrition Current diet/nutrition support order:: NPO - Anthropometric Measurements Height:: 5 ft 2 in Weight:: 81.7 kg Body Mass Index (BMI):: 32.9 - Relevant Labs Relevant Labs:: WBC 11.6 K/mm3 (4.4-11.0) H 02/14/21 03:20 RBC 3.93 M/mm3 (4.2-5.4) L 02/14/21 03:20 Hgb 11.7 g/dL (12.0-15.0) L 02/14/21 03:20 Hct 36.2 % (37-47) L 02/14/21 03:20 RDW Std Deviation 45.6 fl (35.1-43.9) H 02/14/21 03:20 Immature Gran % (Auto) 3.000 % (0.0-0.9) H 02/14/21 03:20 Neut % (Auto) 81.9 % (47-70) H 02/14/21 03:20 Lymph % (Auto) 11.3 % (19-41) L 02/14/21 03:20 Absolute Neuts (auto) 9.4 X10^3/uL (2.0-7.7) H 02/14/21 03:20 Absolute Lymphs (auto) 0.58 X10^3/uL (0.83-4.51) L 02/12/21 04:30 D-Dimer Quant (PE/DVT) 0.52 FEU/ug/m (0.27-0.49) H* 02/11/21 21:07 Sodium 146 mmol/L (136-145) H 02/14/21 03:20 Potassium 3.2 mmol/L (3.5-5.1) L 02/13/21 03:45 Chloride 111 mmol/L (98-107) H 02/14/21 03:20 BUN 24 mg/dL (7-18) H 02/14/21 03:20 Creatinine 1.45 mg/dL (0.55-1.02) H 02/11/21 18:10 Est GFR (MDRD) Af Amer 48 mL/min (>60) L 02/11/21 18:10 Est GFR (MDRD) Non-Af 40 mL/min (>60) L 02/11/21 18:10 BUN/Creatinine Ratio 29.8 RATIO (10-20) H 02/14/21 03:20 Glucose 133 mg/dL (74-106) H 02/14/21 03:20 Calcium 8.3 mg/dL (8.5-10.1) L 02/14/21 03:20 AST 45 U/L (15-37) H 02/11/21 18:10 B-Natriuretic Peptide 172.4 pg/mL (0-100) H 02/13/21 03:45 Albumin 2.6 g/dL (3.2-5.0) L 02/14/21 03:20 Globulin 4.3 g/dL (2.2-4.2) H 02/14/21 03:20 Albumin/Globulin Ratio 0.6 RATIO (0.9-2.4) L 02/14/21 03:20 Triglycerides 238 mg/dL (-199) H 02/13/21 03:45 Procalcitonin 0.12 ng/mL (0.00-0.09) H 02/13/21 08:20 - Assessment Food and Nutrient Intake: Remains intubated. Wt decrease of of 0.7 kg since last review. Per richa manjarrez for enteral nutrition support this date. - Nutrition Diagnosis: Intake Problem Inadequate Oral Intake Intake Problem - Etiology: r/t resp. failure requiring mechanical intubation Intake Problem - Signs/Symptoms: as evidenced by no PO intake x 24 hours, predicted suboptimal energy intake during acute illness Status: Active Problem - Nutrition Diagnosis: Clinical Problem Obese, Class I Clinical Problem - Etiology: - Clinical Problem - Signs/Symptoms: - Status: Inactive Problem Altered Nutrient-Related Laboratory Values Clinical Problem - Etiology: r/t steroid administration Clinical Problem - Signs/Symptoms: as evidenced by glucose 133 Status: Active Problem - Protein Calorie Malnutrition Evidence of Malnutrition Exists: No - Nutrition Intervention Nutrition Prescription: [id number] calories/day (RMR x 1.3). 82-124 g protein/day (1-1.5 g/kg). 2060mL fluid/day (25mL/kg) - Food / Nutrient Delivery Interventions Summary of nutrition intervention:: Order/adjust enteral nutrition Nutrition support ordered as / adjusted to:: While intubated, recommend enteral nutrition support via OGT- Vital AF 1.2 at goal rate of 60mL/hour w/ 150mL H2O flush every 4 hours to provide 1728 calories, 108 g protein, and 2067mL total fluid/day. Would start at 15mL/hour and increase by 15mL every 8-12 hours as pt tolerates until goal rate is achieved. - MNT Monitoring Active Nutrition Patient: Yes Nutrition Status: Requires Follow Up in 1-2 Days
[2021-02-14] MEDS: Labetalol (Prefilled) 20 MG/4 ML IV ×2 (11:02→20:24)
[2021-02-14] MEDS: PARoxetine 10 MG Tablet 15 MG GT (11:03)
[2021-02-14] MEDS: Chlorhexidine 15 ML PO ×2 (11:06→20:47)
[2021-02-14] MEDS: Enoxaparin 40 MG/0.4 ML Syringe SC ×2 (11:06→20:48)
[2021-02-14] MEDS: CHLORHEXIDINE GLUC 2% CLOTH 1 EACH TOWELETTE TOPICAL (11:06)
[2021-02-14] MEDS: 0.9% Saline Lock 10 ML Syringe IV ×3 (11:07→20:47)
[2021-02-14] MEDS: dexAMETHasone 2 MG TABLET 6 MG GT (11:17)
[2021-02-14] MEDS: hydroCHLOROthiazide 12.5mg 12.5 MG PO (14:22)
[2021-02-14] MEDS: Lisinopril 20 MG Tablet PO (14:23)
[2021-02-14] MEDS: Vital AF 1.2 Cal Liquid 1,000 ML 15 ML GT (14:23)
[2021-02-14] MEDS: Acetaminophen 650 MG/20 ML UDC GT (14:26)
--- NOTE | 2021-02-14 14:57 | CON.PCM.ID_ITS ---
Assessment & Plan Assessment/Plan (1) Acute hypoxemic respiratory failure: (2) COVID-19: PLAN: Sx started about a week prior to presentation on 02/11. Sats as low as 87% on day of admission, but not started on remdesivir until 02/13. Zosyn added at that same time, cxs neg so far, likely can stop zosyn tomorrow. Cont dex for 10 day course. Will monitor daily cmp and cbc while on remdesivir. ROSALINO resolved. Recommend covid vaccine once she is out of the hospital and out of quarantine. D-dimer was just above normal range, on lovenox 40mg bid. Will follow, thank you. (3) ROSALINO (acute kidney injury): HPI Consult Data Date of Consult: 02/14/21 HPI Narrative HPI Narrative: GIOVANNY DANIELLE, is a 55 F who presented 02/11 with one week of cough, fatigue, dyspnea, not feeling well. Came to ED, covid (+), admitted on dex. Sat as low as 87% that evening, not started on remdesivir. Condition worsened, became more hypoxic. 02/13 zosyn and remdesivir started. Now on vent. Pt unable to provide history or ROS. [facility] Medical History Anxiety Depression Hypertension Home Medications dexamethasone [Decadron] 6 mg PO DAILY #5 tab 02/11/21 [Rx Last Taken Unknown] lisinopril-hydrochlorothiazide 1 tab PO DAILY 02/11/21 [History Last Taken Unknown] paroxetine HCl [Paxil] 15 mg PO DAILY 02/11/21 [History Last Taken Unknown] Allergy/AdvReac Type Severity Reaction Status Date / Time No Known Allergies Allergy Verified 02/11/21 15:18 Social History Smoking Status: Never smoker Physical Exam Const no apparent distress Eyes PERRL Neck supple and No nodes Resp Auscultation: diminished lung sounds Cardio regular rate and regular rhythm GI normal to inspection, nondistended, normoactive bowel sounds Extremity no clubbing, cyanosis or edema Skin no rashes or lesions noted Neuro CN's II-XII intact bilaterally Lab / Micro Data Result Diagrams: 02/14/21 03:20 02/14/21 03:20 Labs: Laboratory Results - last 24 hr 02/14/21 02/14/21 03:20 03:20 WBC 11.6 H RBC 3.93 L Hgb 11.7 L Hct 36.2 L MCV 92.1 MCH 29.8 MCHC 32.3 RDW Std Deviation 45.6 H RDW Coeff of [place] 13.3 Plt Count 387 MPV 8.7 Immature Gran % (Auto) 3.000 H Neut % (Auto) 81.9 H Lymph % (Auto) 11.3 L [place] % (Auto) 3.5 Eos % (Auto) 0.0 Baso % (Auto) 0.3 Absolute Neuts (auto) 9.4 H Absolute Lymphs (auto) 1.31 Nucleated RBC % 0 Sodium 146 H Potassium 3.7 Chloride 111 H Carbon Dioxide 27.0 Anion Gap 8 BUN 24 H Creatinine 0.80 Estim Creat Clear Calc 62.10 Est GFR (MDRD) Af Amer 95 Est GFR (MDRD) Non-Af 78 BUN/Creatinine Ratio 29.8 H Glucose 133 H Calcium 8.3 L Total Bilirubin 0.40 AST 37 ALT 37 Alkaline Phosphatase 57 Total Protein 6.9 Albumin 2.6 L Globulin 4.3 H Albumin/Globulin Ratio 0.6 L Micro: Microbiology 02/13/21 09:36 Gram Stain - Final Sputum, Induced/Lukens Respiratory Culture - Preliminary Appears to be normal respiratory lenora. Further studies to follow. 02/11/21 18:22 Blood Culture - Preliminary Blood Culture (Wb) - Anticubital Right No growth in 48 hours. 02/11/21 18:10 Blood Culture - Preliminary Blood Culture (Wb) - Anticubital Left No growth in 48 hours.
[2021-02-15] VITALS (33 sets, daily range): BP systolic 124–215; BP diastolic 60–93; PULSE 52–82; RESP 12–16; TEMP 37.3–37.8; O2SAT 92–97
[2021-02-15] MEDS: 0.9% Saline Lock 10 ML Syringe IV ×4 (02:47→21:06)
[2021-02-15] MEDS: Labetalol (Prefilled) 20 MG/4 ML IV ×2 (02:47→17:19)
[2021-02-15] MEDS: CHLORHEXIDINE GLUC 2% CLOTH 1 EACH TOWELETTE TOPICAL (03:39)
[2021-02-15 03:41] LABS: Hemoglobin 10.6 g/dL (12.0-15.0); Mean Corp Hgb Conc 32.1 g/dL (32-36); Mean Corpuscular Hgb 29.5 pg (27.0-32.0); Mean Corpuscular Volume 91.9 fL (81-99); Mean Platelet Vol. 8.9 fl (6.2-12.0); Platelet Count 383 K/mm3 (150-450); RBC Distribution Width CV 13.2 % (11.6-14.6); RBC Distribution Width SD 45.1 fl (35.1-43.9); Red Blood Count 3.59 M/mm3 (4.2-5.4); White Blood Count 10.1 K/mm3 (4.4-11.0)
[2021-02-15 04:07] LABS: ALB/GLOB Ratio 0.6 RATIO (0.9-2.4); AST(SGOT) 31 U/L (15-37); Alanine Aminotransfer ALT/SGPT 37 U/L (13-56); Albumin, Serum 2.4 g/dL (3.2-5.0); Alkaline Phosphatase 55 U/L (45-117); Anion Gap 5 (5-15); BUN 26 mg/dL (7-18); BUN/Creat Ratio 37.7 RATIO (10-20); Calcium,Total 8.1 mg/dL (8.5-10.1); Chloride 110 mmol/L (98-107); Creatinine, Serum 0.69 mg/dL (0.55-1.02); EST Glomerular Filtration Rate 94 mL/min (>60); Est Glom Filt Rate - Afr Amer 113 mL/min (>60); Glucose 152 mg/dL (74-106); Potassium 3.3 mmol/L (3.5-5.1); Protein, Total 6.4 g/dL (6.4-8.2); Sodium Level 144 mmol/L (136-145)
--- NOTE | 2021-02-15 05:44 | PCM.PN.INT ---
Assessment & Plan Assessment/Plan (1) Acute hypoxemic respiratory failure: (2) COVID-19: PLAN: RECOMMENDATIONS: 1. Continue to wean FiO2 and PEEP to maintain oxygen saturations at or above 90%. 2. Continue home antihypertensives. 3. Continue empiric antimicrobials. 4. Continue remdesivir to complete treatment course. Continue to monitor liver and renal function. 5. Continue Decadron to complete 10-day treatment course. 6. Continue tube feeds as tolerated. 7. Continue appropriate ICU prophylaxis. IMPRESSIONS: 1. Acute hypoxemic respiratory failure The patient was initially admitted to the hospital with approximately 1 week of Covid-like symptoms, but experienced progressive decline in her respiratory status. She was initially only being maintained on Decadron. However, in light of her clinical instability, the patient was started on remdesivir as well. In addition, given her worsened appearance of her chest x-ray, empiric antimicrobials were initiated. We will plan to continue Decadron accordingly. Infectious diseases is also following to assist with medical management. 2. Acute kidney injury Resolved. Likely prerenal in etiology as creatinine normalized with volume expansion. Fluids have been discontinued at this time. Plan to continue to monitor urine output. No current indication for renal replacement therapy. 3. Hypokalemia Electrolyte repletion as ordered. Recheck levels in the morning. 4. Obesity/hypertension/depression Complicates care, management, recovery and prognosis. Continue home medications as indicated. TIME: 36 minutes of critical care time, independent of procedures, was spent addressing the patient's acute hypoxemic respiratory failure, COVID-19 pneumonia, acute kidney injury, review of all data and collaboration with the care team. ([id number]) Subjective Subjective The patient was seen and examined at the bedside this morning. Events from the last 24 hours have been reviewed. The patient is currently afebrile, hemodynamically stable and maintaining appropriate oxygen saturations with an FiO2 requirement of 40%. The patient has done well thus far this morning on her spontaneous breathing trial. She is currently documented to be overall net +6.1 L for the hospital admission. Liver and renal function are stable. Potassium is low this morning at 3.3. The patient remains on empiric antimicrobials, remdesivir and Decadron. The patient's blood pressures have been elevated overnight. She has been tolerant of tube feeds. Objective Data Objective Data The patient's most recent lab work, culture data and imaging studies have all been personally reviewed. MRSA screen was negative. Coronavirus PCR was positive on February 11. Blood and sputum cultures have shown no growth to date. Vital Signs: Vital Signs Temp Pulse Resp BP Pulse Ox 99.9 F H 70 16 159/60 H 94 02/15/21 05:00 02/15/21 05:06 02/15/21 05:06 02/15/21 05:00 02/15/21 05:06 Oxygen Flow Rate (L/min) 60 Oxygen Delivery Method Mechanical Ventilator Weight: 180 lb 5.41 oz Body Mass Index (BMI) 32.9 Intake & Output: Intake and Output for Last 24 Hours 02/13/21 02/14/21 02/15/21 23:59 23:59 23:59 Intake Total 2481.36 / 2496.36 2032.75 / 2405.75 874.52 / 874.52 Output Total 880 / 930 840 / 1090 400 / 400 Balance 1601.36 / 1566.36 1192.75 / 1315.75 474.52 / 474.52 Lab / Micro Data Attestation: I reviewed the patient's lab results. Result Diagrams: 02/15/21 03:30 02/15/21 03:30 Labs: Laboratory Results - last 24 hr 02/15/21 02/15/21 02/15/21 03:30 03:30 03:30 WBC 10.1 RBC 3.59 L Hgb 10.6 L Hct 33.0 L MCV 91.9 MCH 29.5 MCHC 32.1 RDW Std Deviation 45.1 H RDW Coeff of [place] 13.2 Plt Count 383 MPV 8.9 D-Dimer Quant (PE/DVT) 0.50 H Sodium 144 Potassium 3.3 L Chloride 110 H Carbon Dioxide 29.0 Anion Gap 5 BUN 26 H Creatinine 0.69 Estim Creat Clear Calc 72.00 Est GFR (MDRD) Af Amer 113 Est GFR (MDRD) Non-Af 94 BUN/Creatinine Ratio 37.7 H Glucose 152 H Calcium 8.1 L Total Bilirubin 0.40 AST 31 ALT 37 Alkaline Phosphatase 55 Total Protein 6.4 Albumin 2.4 L Globulin 4.0 Albumin/Globulin Ratio 0.6 L Micro: Microbiology 02/13/21 09:36 Sputum, Induced/Lukens Gram Stain - Final 02/13/21 09:36 Sputum, Induced/Lukens Respiratory Culture - Preliminary Appears to be normal respiratory lenora. Further studies to follow. 02/11/21 18:22 Blood Culture (Wb) - Anticubital Right Blood Culture - Preliminary No growth in 48 hours. 02/11/21 18:10 Blood Culture (Wb) - Anticubital Left Blood Culture - Preliminary No growth in 48 hours. 02/11/21 15:35 Mucosa - Nose SARS-CoV-2 Antigen (Rapid) - Final Physical Exam Const no apparent distress General Appearance: patient mechanically ventilated HEENT normocephalic and head/scalp atraumatic Mouth: endotracheal tube in place and OG tube in place Eyes PERRL, EOMs intact bilaterally and conjunctivae normal Neck supple General: trachea midline Resp Auscultation: diminished lung sounds; Negative for rales, rhonchi or wheezes Cardio regular rate and regular rhythm GI normal to inspection, nondistended, normoactive bowel sounds Extremity no clubbing, cyanosis or edema Skin no rashes or lesions noted Neuro no focal motor deficits Sensorium / Orientation: sedated on vent Charges/Coding Procedures Hospitalists Procedures: 50790 Critial Care 1st Hr
--- NOTE | 2021-02-15 07:07 | PCM.PN.HOSP ---
Subjective Subjective Patient seen awake on the vent. Currently undergoing weaning trial. She is able to respond to questions appropriately. Objective Data Objective Data Vital Signs: Vital Signs Temp Pulse Resp BP Pulse Ox 100.0 F H 65 14 204/84 H 92 02/15/21 07:00 02/15/21 07:00 02/15/21 07:00 02/15/21 07:00 02/15/21 07:00 Oxygen Flow Rate (L/min) 60 Oxygen Delivery Method Mechanical Ventilator Weight: 81.8 kg Body Mass Index (BMI) 32.9 Intake & Output: Intake and Output for Last 24 Hours 02/13/21 02/14/21 02/15/21 23:59 23:59 23:59 Intake Total 2481.36 / 2496.36 2032.75 / 2405.75 877.02 / 877.02 Output Total 880 / 930 840 / 1090 500 / 500 Balance 1601.36 / 1566.36 1192.75 / 1315.75 377.02 / 377.02 Lab / Micro Data Result Diagrams: 02/15/21 03:30 02/15/21 03:30 Labs: Laboratory Results - last 24 hr 02/15/21 02/15/21 02/15/21 03:30 03:30 03:30 WBC 10.1 RBC 3.59 L Hgb 10.6 L Hct 33.0 L MCV 91.9 MCH 29.5 MCHC 32.1 RDW Std Deviation 45.1 H RDW Coeff of [place] 13.2 Plt Count 383 MPV 8.9 D-Dimer Quant (PE/DVT) 0.50 H Sodium 144 Potassium 3.3 L Chloride 110 H Carbon Dioxide 29.0 Anion Gap 5 BUN 26 H Creatinine 0.69 Estim Creat Clear Calc 72.00 Est GFR (MDRD) Af Amer 113 Est GFR (MDRD) Non-Af 94 BUN/Creatinine Ratio 37.7 H Glucose 152 H Calcium 8.1 L Total Bilirubin 0.40 AST 31 ALT 37 Alkaline Phosphatase 55 Total Protein 6.4 Albumin 2.4 L Globulin 4.0 Albumin/Globulin Ratio 0.6 L Micro: Microbiology 02/13/21 09:36 Sputum, Induced/Lukens Gram Stain - Final 02/13/21 09:36 Sputum, Induced/Lukens Respiratory Culture - Preliminary Appears to be normal respiratory lenora. Further studies to follow. 02/11/21 18:22 Blood Culture (Wb) - Anticubital Right Blood Culture - Preliminary No growth in 48 hours. 02/11/21 18:10 Blood Culture (Wb) - Anticubital Left Blood Culture - Preliminary No growth in 48 hours. 02/11/21 15:35 Mucosa - Nose SARS-CoV-2 Antigen (Rapid) - Final Physical Exam Narrative GENERAL: Awake on the vent HEENT: Atraumatic; EYES; Anicteric, Normal Conjunctiva NECK; supple, normal thyroid, RESPIRATORY: Diminished to auscultation CARDIOVASCULAR: Regular S1 S2, GI: soft, normoactive bowel sounds, : No Renal angle tenderness; EXTREMITIES: No edema, no clubbing, MUSCULOSKELETAL: no muscle waisting NEURO: Awake; no lateralizing signs. SKIN: No Rash PSYCH; Flat affect Assessment & Plan Assessment/Plan (1) COVID-19: (2) ROSALINO (acute kidney injury): (3) Hypokalemia: (4) Hypoxia: PLAN: Patient is a 55-year-old lady who presented withCough fever and generalized weakness with prior Covid exposure. Patient apparently has not been vaccinated. Her assessment on admission was consistent with acute COVID-19 pneumonitis admitted to intensive care unit for further management 1. Acute hypoxic respiratory failure secondary to SARS-CoV-2 pneumonia ?Admitted to intensive care unit managed with supplemental oxygen as well as p.o. Decadron and supportive management. Attempt to wean patient off oxygen was unsuccessful. Patient placed back on supplemental oxygen. Did encourage use of incentive spirometry ?02/13/2021. Chest x-ray obtained last night demonstrated progressive bilateral pulmonary infiltrates worse than the right infrahilar region. Patient breathing status also deteriorated resulting in patient being placed on Airvo. Case was discussed with pulmonary medicine regarding initiation of remdesivir. Currently on antibiotic therapy for suspected superimposed bacterial infection. Plan is to have the family discussion regarding patient being possibly placed on the ventilator -02/14/2021 Patient clinical condition deteriorated the day prior resulting in patient being intubated and placed on the vent. Was also started on remdesivir. Attempts at weaning this a.m. unsuccessful ?02/15/2021 patient remains on the vent currently undergoing weaning trial. 2. Hypotension ?Present on admission patient resuscitated with IV fluid her antihypertensives held 3. Acute kidney injury ?Secondary to dehydration and hypotension resuscitated with IV fluids kidney function back to baseline 4. Mild hyponatremia ?Secondary to hypovolemic hyponatremia managed with IV fluid 5. Hypokalemia -Corrected per protocol 6. Obesity with BMI of 31.8 ?Weight loss advised 7. Essential hypertension ?Antihypertensives on hold in view of patient presenting with hypotension 8. Depression ?Patient is on SSRI 9. DVT prophylaxis ?Lovenox Prognosis; guarded Charges/Coding Visit Charges Inpatient E&M: 25088 Subs Hosp L2
[2021-02-15] MEDS: Chlorhexidine 15 ML PO ×2 (08:25→21:06)
[2021-02-15] MEDS: PARoxetine 10 MG Tablet 15 MG GT (08:26)
[2021-02-15] MEDS: hydroCHLOROthiazide 12.5mg 12.5 MG PO (08:26)
[2021-02-15] MEDS: dexAMETHasone 2 MG TABLET 6 MG GT (08:27)
[2021-02-15] MEDS: Lisinopril 20 MG Tablet PO (08:27)
[2021-02-15] MEDS: Enoxaparin 40 MG/0.4 ML Syringe SC ×2 (08:28→21:06)
--- NOTE | 2021-02-15 08:40 | RAD_ITS ---
STUDY: X-RAY CHEST REASON FOR EXAM: Female, 55 years old. Respiratory Failure TECHNIQUE: Single AP portable view of the chest. COMPARISON: Comparison is made with prior examination dated 02/13/2021. FINDINGS: An endotracheal tube is in situ. The tip is at 2.8 cm proximal to the cody. An orogastric tube is seen with the tip below the left hemidiaphragm. EKG lead are seen. Persistent infiltrate in the left lower lobe. Mild residual right midlung infiltrate. There is been a moderate degree of improvement as compared to prior study. There is no demonstrated pleural abnormality. Normal size heart. Normal mediastinum and palomo. Normal visualized pulmonary arteries. Normal visualized aortic arch and descending thoracic aorta. Normal visualized thoracic spine. Normal visualized ribs, clavicles, and shoulders. There is no demonstrated abnormality of the visualized soft tissue structures of the upper abdomen. RAD/Chest 1 View (Portable) IMPRESSION: Improvement in aeration of both lungs as compared to prior study. The support tubes are unchanged. Electronically Signed: Garcia Sales MD at 12:27 EDT , Service support ,
[2021-02-15] MEDS: Propofol 10MG/Ml 1,000 MG/100 ML Bottle 4.9 MG CONT INF (09:45)
[2021-02-15] MEDS: TITRATION PARAMETER CHANGE 1 EACH IV ×2 (11:52→16:35)
[2021-02-15 12:17] LABS: CPK Total, Creatine Kinase 45 U/L (26-192); Triglycerides 219 mg/dL
--- NOTE | 2021-02-15 16:46 | CHAPLAIN ---
Type of Pastoral Visit ___ Initial Visit ___ Follow-up Visit ___ On-call Visit ___ General Patient Visit ___ Spiritual Assessment ___ Family Conference ___ Bereavement ___ Rapid Response ___ Code Blue ___ Other (describe below) Pastoral Care Referral From ___ Patient ___ Family ___ Nurse ___ Physician ___ Upholsterer Inside ___ Treatment Counselor ___ Other (describe below) Sacrament/Intervention ___ Active listening ___ Anointing ___ Latter-Day ___ Bereavement ___ Communion ___ Danielle exploration ___ ___ Life review ___ Prayer ___ Reconciliation ___ Sacrament of Sick ___ Supportive presence ___ Wedding ___ Other (describe below) Pastoral Comments patient was sedated and no family members were present at time of visit
[2021-02-16] VITALS (37 sets, daily range): BP systolic 125–223; BP diastolic 67–99; PULSE 16–89; RESP 11–18; TEMP 36.5–37.4; O2SAT 92–100
[2021-02-16] MEDS: Vital AF 1.2 Cal Liquid 1,000 ML 60 ML GT (03:00)
[2021-02-16] MEDS: Propofol 10MG/Ml 1,000 MG/100 ML Bottle 2.5 MG CONT INF (03:00)
[2021-02-16] MEDS: 0.9% Saline Lock 10 ML Syringe IV ×4 (03:12→06:18)
[2021-02-16 03:52] LABS: ALB/GLOB Ratio 0.6 RATIO (0.9-2.4); AST(SGOT) 65 U/L (15-37); Alanine Aminotransfer ALT/SGPT 114 U/L (13-56); Albumin, Serum 2.3 g/dL (3.2-5.0); Alkaline Phosphatase 56 U/L (45-117); Anion Gap 7 (5-15); BUN 24 mg/dL (7-18); BUN/Creat Ratio 42.4 RATIO (10-20); Chloride 105 mmol/L (98-107); Creatinine, Serum 0.57 mg/dL (0.55-1.02); EST Glomerular Filtration Rate 117 mL/min (>60); Est Glom Filt Rate - Afr Amer 142 mL/min (>60); Estimated Creatinine Clearance 87.16 ml/min; Globulin 3.9 g/dL (2.2-4.2); Glucose 156 mg/dL (74-106); Potassium 3.2 mmol/L (3.5-5.1); Protein, Total 6.2 g/dL (6.4-8.2); Sodium Level 140 mmol/L (136-145)
[2021-02-16 04:06] LABS: Hematocrit 33.5 % (37-47); Hemoglobin 10.8 g/dL (12.0-15.0); Mean Corp Hgb Conc 32.2 g/dL (32-36); Mean Corpuscular Hgb 29.6 pg (27.0-32.0); Mean Corpuscular Volume 91.8 fL (81-99); Mean Platelet Vol. 8.8 fl (6.2-12.0); POSITIVE COUNT YES; POSITIVE MORPHOLOGY YES; Platelet Count 409 K/mm3 (150-450); RBC Distribution Width CV 12.9 % (11.6-14.6); RBC Distribution Width SD 43.8 fl (35.1-43.9); Red Blood Count 3.65 M/mm3 (4.2-5.4); Scan Indicated on CBC? Y/N YES- FLAGS NOTED; White Blood Count 10.1 K/mm3 (4.4-11.0)
[2021-02-16] MEDS: CHLORHEXIDINE GLUC 2% CLOTH 1 EACH TOWELETTE TOPICAL (04:15)
[2021-02-16 04:19] LABS: Differential Comment SCANNED
[2021-02-16] MEDS: TITRATION PARAMETER CHANGE 1 EACH IV (04:49)
[2021-02-16] MEDS: Labetalol (Prefilled) 20 MG/4 ML IV ×2 (06:18→17:26)
--- NOTE | 2021-02-16 06:19 | PN.CC_ITS ---
Assessment & Plan Assessment/Plan (1) Acute hypoxemic respiratory failure: (2) COVID-19: PLAN: RECOMMENDATIONS: 1. Proceed with a trial of extubation this morning. 2. Once extubated, wean supplemental oxygen to maintain saturations at or above 90%. 3. Perform bedside swallow evaluation and advance diet accordingly. 4. Continue home antihypertensives. 5. Continue remdesivir to complete treatment course. Continue to monitor liver and renal function. 6. Continue Decadron to complete 10-day treatment course. 7. Start scheduled Lasix. IMPRESSIONS: 1. Acute hypoxemic respiratory failure The patient was initially admitted to the hospital with approximately 1 week of Covid-like symptoms, but experienced progressive decline in her respiratory status. She was initially only being maintained on Decadron. However, in light of her clinical instability, the patient was started on remdesivir as well. In addition, given her worsened appearance of her chest x-ray, empiric antimicrobials were initiated. We will plan to continue Decadron accordingly. Infectious diseases is also following to assist with medical management. The patient is otherwise medically stable for a trial of extubation. Once extubated, supplemental oxygen will be weaned as tolerated. 2. Acute kidney injury Resolved. Likely prerenal in etiology as creatinine normalized with volume expansion. Fluids have been discontinued at this time. Plan to continue to monitor urine output. No current indication for renal replacement therapy. 3. Hypokalemia Additional electrolyte repletion as ordered. Recheck levels in the morning. 4. Obesity/hypertension/depression Complicates care, management, recovery and prognosis. Continue home medications as indicated. TIME: 35 minutes of critical care time, independent of procedures, was spent addr essing the patient's acute hypoxemic respiratory failure, COVID-19 pneumonia, acute kidney injury, review of all data and collaboration with the care team. ([id number]) Subjective Subjective The patient was seen and examined at the bedside this morning. Events from the last 24 hours have been reviewed. The patient is currently afebrile, hemodynamically stable and maintaining appropriate oxygen saturations with an FiO2 requirement of 35%. The patient is currently tolerating her spontaneous breathing trial. She has been tolerant of tube feeds as well. The patient's blood pressures remain elevated this morning. Nursing staff did report that the patient experienced episodes of bradycardia overnight. The patient is currently documented to be overall net +8 L for the hospital admission. The patient remains on remdesivir and Decadron. Potassium is low this morning at 3.2. AST and ALT increased overnight. The patient is alert and appropriately interactive. Objective Data Objective Data The patient's most recent lab work, culture data and imaging studies have all been personally reviewed. MRSA screen was negative. Coronavirus PCR was positive on February 11. Blood and sputum cultures have shown no growth to date. Vital Signs: Vital Signs Temp Pulse Resp BP Pulse Ox 99.1 F 56 L 14 218/93 H 93 02/16/21 06:00 02/16/21 06:00 02/16/21 06:00 02/16/21 06:00 02/16/21 06:00 Oxygen Flow Rate (L/min) 60 Oxygen Delivery Method Mechanical Ventilator Weight: 179 lb 14.355 oz Body Mass Index (BMI) 32.9 Intake & Output: Intake and Output for Last 24 Hours 02/14/21 02/15/21 02/16/21 23:59 23:59 23:59 Intake Total 2032.75 / 2405.75 3232.34 / 3744.34 1038.00 / 1038.00 Output Total 840 / 1090 1580 / 1730 300 / 300 Balance 1192.75 / 1315.75 1652.34 / 2014.34 738.00 / 738.00 Lab / Micro Data Attestation: I reviewed the patient's lab results. Result Diagrams: 02/16/21 03:25 02/16/21 03:25 Labs: Laboratory Results - last 24 hr 02/15/21 02/16/21 02/16/21 03:30 03:25 03:25 WBC 10.1 RBC 3.65 L Hgb 10.8 L Hct 33.5 L MCV 91.8 MCH 29.6 MCHC 32.2 RDW Std Deviation 43.8 RDW Coeff of [place] 12.9 Plt Count 409 MPV 8.8 Differential Comment SCANNED Sodium 140 Potassium 3.2 L Chloride 105 Carbon Dioxide 28.0 Anion Gap 7 BUN 24 H Creatinine 0.57 Estim Creat Clear Calc 87.16 Est GFR (MDRD) Af Amer 142 Est GFR (MDRD) Non-Af 117 BUN/Creatinine Ratio 42.4 H Glucose 156 H Calcium 8.0 L Total Bilirubin 0.40 AST 65 H ALT 114 H Alkaline Phosphatase 56 Total Creatine Kinase 45 Total Protein 6.2 L Albumin 2.3 L Globulin 3.9 Albumin/Globulin Ratio 0.6 L Triglycerides 219 H Micro: Microbiology 02/13/21 09:36 Sputum, Induced/Lukens Gram Stain - Final 02/13/21 09:36 Sputum, Induced/Lukens Respiratory Culture - Preliminary Streptococcus group B 02/11/21 18:22 Blood Culture (Wb) - Anticubital Right Blood Culture - Preliminary No growth in 48 hours. 02/11/21 18:10 Blood Culture (Wb) - Anticubital Left Blood Culture - Preliminary No growth in 48 hours. 02/11/21 15:35 Mucosa - Nose SARS-CoV-2 Antigen (Rapid) - Final Radiography Diagnostic Testing: Radiology Impression Chest X-Ray 02/15/21 08:40 IMPRESSION: Improvement in aeration of both lungs as compared to prior study. The support tubes are unchanged. Electronically Signed: Garcia Sales MD at 12:27 EDT , Service support , Physical Exam Const alert and no apparent distress General Appearance: cooperative and patient mechanically ventilated HEENT normocephalic and head/scalp atraumatic Mouth: endotracheal tube in place and OG tube in place Eyes PERRL, EOMs intact bilaterally and conjunctivae normal Neck supple General: trachea midline Resp Resp Narrative: Scant rhonchi Auscultation: diminished lung sounds; Negative for rales or wheezes Cardio regular rate and regular rhythm GI normal to inspection, nondistended, normoactive bowel sounds Extremity no clubbing, cyanosis or edema Skin no rashes or lesions noted Neuro moves all extremities and no focal motor deficits Psych cooperative Charges/Coding Procedures Hospitalists Procedures: 64461 Critial Care 1st Hr
[2021-02-16] MEDS: Potassium Chloride 10mEq/100mL 10 MEQ/100 ML IV.SOLN. 100 MEQ IV BOLUS ×4 (06:43→11:18)
[2021-02-16] MEDS: Potassium Chloride Oral Soln 20 MEQ/15 ML UDC 40 MEQ PO (07:02)
--- NOTE | 2021-02-16 07:13 | PCM.PN.HOSP ---
Subjective Subjective Patient seen successfully weaned off the vent this a.m. Objective Data Objective Data Vital Signs: Vital Signs Temp Pulse Resp BP Pulse Ox 99.2 F H 57 L 15 197/88 H 93 02/16/21 07:00 02/16/21 07:00 02/16/21 07:00 02/16/21 07:00 02/16/21 07:00 Oxygen Flow Rate (L/min) 60 Oxygen Delivery Method Mechanical Ventilator Weight: 81.6 kg Body Mass Index (BMI) 32.9 Intake & Output: Intake and Output for Last 24 Hours 02/14/21 02/15/21 02/16/21 23:59 23:59 23:59 Intake Total 2032.75 / 2405.75 3232.34 / 3744.34 1160.50 / 1160.50 Output Total 840 / 1090 1580 / 1730 375 / 375 Balance 1192.75 / 1315.75 1652.34 / 2014.34 785.50 / 785.50 Lab / Micro Data Result Diagrams: 02/16/21 03:25 02/16/21 03:25 Labs: Laboratory Results - last 24 hr 02/15/21 02/16/21 02/16/21 03:30 03:25 03:25 WBC 10.1 RBC 3.65 L Hgb 10.8 L Hct 33.5 L MCV 91.8 MCH 29.6 MCHC 32.2 RDW Std Deviation 43.8 RDW Coeff of [place] 12.9 Plt Count 409 MPV 8.8 Differential Comment SCANNED Sodium 140 Potassium 3.2 L Chloride 105 Carbon Dioxide 28.0 Anion Gap 7 BUN 24 H Creatinine 0.57 Estim Creat Clear Calc 87.16 Est GFR (MDRD) Af Amer 142 Est GFR (MDRD) Non-Af 117 BUN/Creatinine Ratio 42.4 H Glucose 156 H Calcium 8.0 L Total Bilirubin 0.40 AST 65 H ALT 114 H Alkaline Phosphatase 56 Total Creatine Kinase 45 Total Protein 6.2 L Albumin 2.3 L Globulin 3.9 Albumin/Globulin Ratio 0.6 L Triglycerides 219 H Micro: Microbiology 02/13/21 09:36 Sputum, Induced/Lukens Gram Stain - Final 02/13/21 09:36 Sputum, Induced/Lukens Respiratory Culture - Preliminary Streptococcus group B 02/11/21 18:22 Blood Culture (Wb) - Anticubital Right Blood Culture - Preliminary No growth in 48 hours. 02/11/21 18:10 Blood Culture (Wb) - Anticubital Left Blood Culture - Preliminary No growth in 48 hours. 02/11/21 15:35 Mucosa - Nose SARS-CoV-2 Antigen (Rapid) - Final Radiography Diagnostic Testing: Radiology Impression Chest X-Ray 02/15/21 08:40 IMPRESSION: Improvement in aeration of both lungs as compared to prior study. The support tubes are unchanged. Electronically Signed: Garcia Sales MD at 12:27 EDT , Service support , Physical Exam Narrative GENERAL: Awake HEENT: Atraumatic; EYES; Anicteric, Normal Conjunctiva NECK; supple, normal thyroid, RESPIRATORY: Diminished to auscultation CARDIOVASCULAR: Regular S1 S2, GI: soft, normoactive bowel sounds, : No Renal angle tenderness; EXTREMITIES: No edema, no clubbing, MUSCULOSKELETAL: no muscle waisting NEURO: Awake; no lateralizing signs. SKIN: No Rash PSYCH; Flat affect Const alert, oriented x3, no apparent distress, healthy appearing and well nourished General Appearance: cooperative; Negative for uncooperative Orientation / Consciousness: Negative for confused, disoriented or lethargic Assessment & Plan Assessment/Plan (1) COVID-19: (2) ROSALINO (acute kidney injury): (3) Hypokalemia: (4) Hypoxia: PLAN: Patient is a 55-year-old lady who presented withCough fever and generalized weakness with prior Covid exposure. Patient apparently has not been vaccinated. Her assessment on admission was consistent with acute COVID-19 pneumonitis admitted to intensive care unit for further management 1. Acute hypoxic respiratory failure secondary to SARS-CoV-2 pneumonia ?Admitted to intensive care unit managed with supplemental oxygen as well as p.o. Decadron and supportive management. Attempt to wean patient off oxygen was unsuccessful. Patient placed back on supplemental oxygen. Did encourage use of incentive spirometry ?02/13/2021. Chest x-ray obtained last night demonstrated progressive bilateral pulmonary infiltrates worse than the right infrahilar region. Patient breathing status also deteriorated resulting in patient being placed on Airvo. Case was discussed with pulmonary medicine regarding initiation of remdesivir. Currently on antibiotic therapy for suspected superimposed bacterial infection. Plan is to have the family discussion regarding patient being possibly placed on the ventilator -02/14/2021 Patient clinical condition deteriorated the day prior resulting in patient being intubated and placed on the vent. Was also started on remdesivir. Attempts at weaning this a.m. unsuccessful ?02/15/2021 patient remains on the vent currently undergoing weaning trial. -02/16/2021;Patient seen successfully weaned off the vent this a.m. 2. Hypotension ?Present on admission patient resuscitated with IV fluid her antihypertensives held 3. Acute kidney injury ?Secondary to dehydration and hypotension resuscitated with IV fluids kidney function back to baseline 4. Mild hyponatremia ?Secondary to hypovolemic hyponatremia managed with IV fluid 5. Hypokalemia -Corrected per protocol 6. Obesity with BMI of 31.8 ?Weight loss advised 7. Essential hypertension ?Antihypertensives on hold in view of patient presenting with hypotension 8. Depression ?Patient is on SSRI 9. DVT prophylaxis ?Lovenox Prognosis; guarded Charges/Coding Multi Select Codes Visit Charges Visit Charges: 38495 Subs Hosp L2
[2021-02-16] MEDS: dexAMETHasone 2 MG TABLET 6 MG GT (08:00)
[2021-02-16] MEDS: Enoxaparin 40 MG/0.4 ML Syringe SC ×2 (08:00→21:16)
[2021-02-16] MEDS: Chlorhexidine 15 ML PO (08:00)
[2021-02-16] MEDS: PARoxetine 10 MG Tablet 15 MG GT (08:00)
[2021-02-16] MEDS: Furosemide 40 MG/4 ML Vial IV ×2 (08:00→17:27)
[2021-02-16] MEDS: hydroCHLOROthiazide 12.5mg 12.5 MG PO (08:00)
--- NOTE | 2021-02-16 09:15 | CASEMGMT ---
Addendum entered by Enriqueta Rosenberg 02/16/21 21:05: 1640: Spoke w/pt's via TC. made aware therapy has worked w/pt today and requiring min A of 2 w/use of walker and additional therapy is recommended. made aware pt prefers to return home but that she voiced she may be home alone at times. states he plans to take off of work for a couple of days to be w/pt and also their daughter plans to come stay with them to help. Discussed option of HHC or OP therapy once pt is out of quarantine. declines at this time, stating he would like to see how pt does once she returns home. He was made aware, if they decide they would like for pt to have HHC or OP therapy, to discuss this with pt's PCP. He voices understanding and appreciation of the information. made aware pt has been using walker. He states they do not have one, but he plans to check w/family to see if he can get one. He was made aware of [facility] [employer] [facility], provided him w/address and contact info. He plans to go this evening or tomorrow to see if there is a walker available. He was also made aware walker could be purchased and approx cost is $50 through local [employer] [facility]. He states will notify RN CM if he is unable to get walker to obtain a script for same to get @ [employer] made aware pt may need home O2 @ discharge and cost is approx $192 through [facility]. He states is agreeable to [employer] as well and confirms they can pay for this. He denies having any further questions/concerns /needs. Green sheet placed on chart w/home O2 set up instructions if pt qualifies for home O2. Addendum entered by Enriqueta Rosenberg 02/16/21 20:59: 1230: To room to talk w/pt and to discuss discharge planning. Pt wishes to discharge home, stating she does not want to go to a SNF. Pt states she does live w/her and son, but they both work, and she may be home alone at times. She is not sure if they have someone else that could stay with her, if needed. She was made aware therapy would work w/her today and will evaluate her strength/ability to ambulate. Discussed option of HHC. Pt states is not sure if she will need that and asked KELVIN CABRERA to contact her to discuss d/c planning w/him as well. Discussed that pt may need home oxygen @ d/c. Pt provided w/list of local DME companies consistent w/pt's medical needs and geographical location. Pt states does not have preference. Made aware [facility] [place] and pt states agreeable to [facility] but would like KELVIN CABRERA to discuss w/her as well. Pt aware approx cost of home O2 for one month is $170-200. Pt states this is affordable. Original Note: KELVIN CABRERA NOTE: Participated in ICU inter-disciplinary rounds. Pt has been extubated this AM. Currently on O2 @ 2 l/m n/c. PT/OT to work w/pt today. KELVIN CABRERA to follow. Petra OSPINAN KELVIN CABRERA
[2021-02-16] MEDS: Lisinopril 20 MG Tablet PO (10:20)
--- NOTE | 2021-02-16 13:31 | PCM.PN.ID ---
Physical Exam Narrative Feeling better, off vent, no fever, no n/v/d. Const alert and no apparent distress General Appearance: cooperative Resp clear to auscultation bilaterally Auscultation: diminished lung sounds Cardio regular rate and regular rhythm GI normal to inspection, nondistended, normoactive bowel sounds Skin no rashes or lesions noted ID ID: Route of nutrition/ use of supplements: [] Nutritional Intake: [] IV Site: [] [place] Catheter: [] Assessment & Plan Assessment/Plan (1) Acute hypoxemic respiratory failure: (2) COVID-19: PLAN: Sx started about a week prior to presentation on 02/11. Sats as low as 87% on day of admission, but not started on remdesivir until 02/13. Off zosyn. Cont dex for 10 day course. Will monitor daily cmp and cbc while on remdesivir. ROSALINO resolved. Recommend covid vaccine once she is out of the hospital and out of quarantine. D-dimer was just above normal range, on lovenox 40mg bid. Improving. Will follow (3) ROSALINO (acute kidney injury):
[2021-02-17] VITALS (19 sets, daily range): BP systolic 113–180; BP diastolic 65–89; PULSE 49–61; RESP 12–18; TEMP 36.9–37.7; O2SAT 92–100
--- NOTE | 2021-02-17 06:03 | PN.CC_ITS ---
Assessment & Plan Assessment/Plan (1) Acute hypoxemic respiratory failure: (2) COVID-19: PLAN: RECOMMENDATIONS: 1. Check morning BMP. 2. Wean supplemental oxygen to maintain saturations at or above 90%. 3. Continue remdesivir and Decadron to complete treatment courses. 4. Continue twice daily Lovenox. 5. Continue home antihypertensive regimen. 6. Encourage incentive spirometer use and mobilize patient as tolerated. IMPRESSIONS: 1. Acute hypoxemic respiratory failure The patient was initially admitted to the hospital with approximately 1 week of Covid-like symptoms, but experienced progressive decline in her respiratory sta tus. She was initially only being maintained on Decadron. However, in light of her clinical instability, the patient was started on remdesivir as well. In addition, given her worsened appearance of her chest x-ray, empiric antimicrobials were initiated. We will plan to continue Decadron accordingly. Infectious diseases is also following to assist with medical management. Continue attempts to wean supplemental oxygen to maintain saturations at or above 90%. 2. Acute kidney injury Resolved. Likely prerenal in etiology as creatinine normalized with volume expansion. Fluids have been discontinued at this time. Plan to continue to monitor urine output. No current indication for renal replacement therapy. 3. Obesity/hypertension/depression Complicates care, management, recovery and prognosis. Continue home medications as indicated. This note was generated with [employer] dictation software. It may contain incorrect words, spelling, and punctuation that were not noted in checking the note before signing. Subjective Subjective The patient was seen and examined at the bedside this morning. Events from the last 24 hours have been reviewed. The patient is currently afebrile, hemodynamically stable and maintaining appropriate oxygen saturations on 6 L/min via nasal cannula. The patient has done well following extubation yesterday. No overnight issues were identified by the nursing staff. The patient is currently documented to be overall net +3.7 L for the hospital admission. Objective Data Objective Data The patient's most recent lab work, culture data and imaging studies have all been personally reviewed. MRSA screen was negative. Coronavirus PCR was positive on February 11. Blood and sputum cultures have shown no growth to date. Vital Signs: Vital Signs Temp Pulse Resp BP Pulse Ox 98.5 F 52 L 12 141/86 H 99 02/17/21 05:18 02/17/21 05:18 02/17/21 05:18 02/17/21 05:18 02/17/21 05:18 Oxygen Flow Rate (L/min) 6 Oxygen Delivery Method Nasal Cannula Weight: 179 lb 14.355 oz Body Mass Index (BMI) 32.9 Intake & Output: Intake and Output for Last 24 Hours 02/15/21 02/16/21 02/17/21 23:59 23:59 23:59 Intake Total 3232.34 / 3744.34 2075.12 / 2576.12 501 / 501 Output Total 1580 / 1730 4650 / 5950 1525 / 1525 Balance 1652.34 / 2014.34 -2574.88 / -3373.88 -1024 / -1024 Lab / Micro Data Attestation: I reviewed the patient's lab results. Result Diagrams: 02/16/21 03:25 02/16/21 03:25 Micro: Microbiology 02/13/21 09:36 Sputum, Induced/Lukens Gram Stain - Final 02/13/21 09:36 Sputum, Induced/Lukens Respiratory Culture - Final Streptococcus agalactiae (B) Mixed Donna 02/11/21 18:22 Blood Culture (Wb) - Anticubital Right Blood Culture - Preliminary No growth in 48 hours. 02/11/21 18:10 Blood Culture (Wb) - Anticubital Left Blood Culture - Preliminary No growth in 48 hours. 02/11/21 15:35 Mucosa - Nose SARS-CoV-2 Antigen (Rapid) - Final Physical Exam Const alert, oriented x3 and no apparent distress General Appearance: cooperative HEENT normocephalic, head/scalp atraumatic and moist oral mucous membranes Eyes PERRL, EOMs intact bilaterally and conjunctivae normal Neck supple General: trachea midline Resp normal respiratory effort Auscultation: diminished lung sounds; Negative for rales, rhonchi or wheezes Cardio regular rate and regular rhythm GI normal to inspection, nondistended, normoactive bowel sounds Extremity no clubbing, cyanosis or edema Skin no rashes or lesions noted Neuro CN's II-XII intact bilaterally, moves all extremities and no focal motor deficits Psych cooperative and affect normal Charges/Coding Visit Charges Inpatient E&M: 74589 Subs Hosp L3
--- NOTE | 2021-02-17 07:22 | PCM.PN.HOSP ---
Subjective Subjective Patient seen much more awake. Oxygen saturation significantly improved. Diagnostic data reviewed significant for potassium of 3.2 correction initiated Objective Data Objective Data Vital Signs: Vital Signs Temp Pulse Resp BP Pulse Ox 98.5 F 52 L 14 168/74 H 97 02/17/21 05:18 02/17/21 06:00 02/17/21 06:00 02/17/21 06:00 02/17/21 06:00 Oxygen Flow Rate (L/min) 6 Oxygen Delivery Method Nasal Cannula Weight: 76.6 kg Body Mass Index (BMI) 32.9 Intake & Output: Intake and Output for Last 24 Hours 02/15/21 02/16/21 02/17/21 23:59 23:59 23:59 Intake Total 3232.34 / 3744.34 2075.12 / 2576.12 601 / 601 Output Total 1580 / 1730 4650 / 5050 725 / 725 Balance 1652.34 / 2014.34 -2574.88 / -2473.88 -124 / -124 Lab / Micro Data Result Diagrams: 02/16/21 03:25 02/16/21 03:25 Micro: Microbiology 02/11/21 18:22 Blood Culture (Wb) - Anticubital Right Blood Culture - Final No growth in 5 days. 02/11/21 18:10 Blood Culture (Wb) - Anticubital Left Blood Culture - Final No growth in 5 days. 02/13/21 09:36 Sputum, Induced/Lukens Gram Stain - Final 02/13/21 09:36 Sputum, Induced/Lukens Respiratory Culture - Final Streptococcus agalactiae (B) Mixed Donna 02/11/21 15:35 Mucosa - Nose SARS-CoV-2 Antigen (Rapid) - Final Physical Exam Narrative GENERAL: Awake HEENT: Atraumatic; EYES; Anicteric, Normal Conjunctiva NECK; supple, normal thyroid, RESPIRATORY: Diminished to auscultation CARDIOVASCULAR: Regular S1 S2, GI: soft, normoactive bowel sounds, : No Renal angle tenderness; EXTREMITIES: No edema, no clubbing, MUSCULOSKELETAL: no muscle waisting NEURO: Awake; no lateralizing signs. SKIN: No Rash PSYCH; Flat affect Assessment & Plan Assessment/Plan (1) COVID-19: (2) ROSALINO (acute kidney injury): (3) Hypokalemia: (4) Hypoxia: PLAN: Patient is a 55-year-old lady who presented withCough fever and generalized weakness with prior Covid exposure. Patient apparently has not been vaccinated. Her assessment on admission was consistent with acute COVID-19 pneumonitis admitted to intensive care unit for further management 1. Acute hypoxic respiratory failure secondary to SARS-CoV-2 pneumonia ?Admitted to intensive care unit managed with supplemental oxygen as well as p.o. Decadron and supportive management. Attempt to wean patient off oxygen was unsuccessful. Patient placed back on supplemental oxygen. Did encourage use of incentive spirometry ?02/13/2021. Chest x-ray obtained last night demonstrated progressive bilateral pulmonary infiltrates worse than the right infrahilar region. Patient breathing status also deteriorated resulting in patient being placed on Airvo. Case was discussed with pulmonary medicine regarding initiation of remdesivir. Currently on antibiotic therapy for suspected superimposed bacterial infection. Plan is to have the family discussion regarding patient being possibly placed on the ventilator -02/14/2021 Patient clinical condition deteriorated the day prior resulting in patient being intubated and placed on the vent. Was also started on remdesivir. Attempts at weaning this a.m. unsuccessful ?02/15/2021 patient remains on the vent currently undergoing weaning trial. -02/16/2021;Patient seen successfully weaned off the vent this a.m. 02/17/2021; patient seen currently on nasal cannula. Oxygen saturation in the high 90s. Did encourage the use of incentive spirometry 2. Hypotension ?Present on admission patient resuscitated with IV fluid her antihypertensives held 3. Acute kidney injury ?Secondary to dehydration and hypotension resuscitated with IV fluids kidney function back to baseline 4. Mild hyponatremia ?Secondary to hypovolemic hyponatremia managed with IV fluid 5. Hypokalemia -Corrected per protocol 6. Obesity with BMI of 31.8 ?Weight loss advised 7. Essential hypertension ?Antihypertensives on hold in view of patient presenting with hypotension -02/17/2021; resumed antihypertensives 8. Depression ?Patient is on SSRI 9. DVT prophylaxis ?Lovenox Prognosis; guarded Charges/Coding Visit Charges Inpatient E&M: 48315 Subs Hosp L2
[2021-02-17] MEDS: Enoxaparin 40 MG/0.4 ML Syringe SC ×2 (10:57→22:03)
[2021-02-17] MEDS: Lisinopril 20 MG Tablet PO (10:57)
[2021-02-17] MEDS: Potassium Chloride Oral Tablet 20 MEQ 40 MEQ PO (10:57)
[2021-02-17] MEDS: PARoxetine 10 MG Tablet 15 MG PO (10:58)
[2021-02-17] MEDS: 0.9% Saline Lock 10 ML Syringe IV (10:58)
[2021-02-17] MEDS: hydroCHLOROthiazide 12.5mg 12.5 MG PO (10:58)
[2021-02-17] MEDS: dexAMETHasone 2 MG TABLET 6 MG PO (10:59)
[2021-02-17 11:21] LABS: Hemoglobin 12.5 g/dL (12.0-15.0); Mean Corp Hgb Conc 32.9 g/dL (32-36); Mean Corpuscular Hgb 29.7 pg (27.0-32.0); Mean Corpuscular Volume 90.3 fL (81-99); Mean Platelet Vol. 8.5 fl (6.2-12.0); Platelet Count 529 K/mm3 (150-450); RBC Distribution Width CV 12.8 % (11.6-14.6); RBC Distribution Width SD 42.3 fl (35.1-43.9); Red Blood Count 4.21 M/mm3 (4.2-5.4); White Blood Count 12.8 K/mm3 (4.4-11.0)
[2021-02-17 11:37] LABS: ALB/GLOB Ratio 0.6 RATIO (0.9-2.4); AST(SGOT) 52 U/L (15-37); Alanine Aminotransfer ALT/SGPT 119 U/L (13-56); Albumin, Serum 2.7 g/dL (3.2-5.0); Alkaline Phosphatase 62 U/L (45-117); Anion Gap 7 (5-15); BUN 28 mg/dL (7-18); BUN/Creat Ratio 38.2 RATIO (10-20); Calcium,Total 8.9 mg/dL (8.5-10.1); Chloride 99 mmol/L (98-107); Creatinine, Serum 0.73 mg/dL (0.55-1.02); EST Glomerular Filtration Rate 87 mL/min (>60); Est Glom Filt Rate - Afr Amer 105 mL/min (>60); Estimated Creatinine Clearance 68.06 ml/min; Globulin 4.4 g/dL (2.2-4.2); Glucose 104 mg/dL (74-106); Potassium 3.5 mmol/L (3.5-5.1); Protein, Total 7.1 g/dL (6.4-8.2); Sodium Level 139 mmol/L (136-145)
--- NOTE | 2021-02-17 15:38 | CASEMGMT ---
KELVIN CABRERA NOTE: Call received from pt's , Philip. He states he was able to get a walker that he borrowed from a family member. Petra GARCÍA RN CM
[2021-02-17] MEDS: Potassium Chloride Oral Tablet 20 MEQ PO (16:14)
[2021-02-18] VITALS (11 sets, daily range): BP systolic 179–233; BP diastolic 83–98; PULSE 48–55; RESP 14–16; TEMP 36.8–36.9; O2SAT 2–97
[2021-02-18] MEDS: 0.9% Saline Lock 10 ML Syringe IV ×2 (05:00→06:07)
--- NOTE | 2021-02-18 05:44 | PCM.PN.INT ---
Assessment & Plan Assessment/Plan (1) Acute hypoxemic respiratory failure: (2) COVID-19: PLAN: RECOMMENDATIONS: 1. Wean supplemental oxygen to maintain saturations at or above 90%. 2. Continue Decadron to complete treatment courses. 3. Continue twice daily Lovenox. 4. Continue home antihypertensive regimen. 5. Encourage incentive spirometer use and mobilize patient as tolerated. 6. Perform walking oximetry study. 7. If the patient is able to maintain saturations on 6 L/min or less with exertion, she can be discharged home to complete her 10- day treatment course of Decadron. 8. Will sign off from a critical care perspective. Please call with any additional questions. IMPRESSIONS: 1. Acute hypoxemic respiratory failure Improved. The patient was initially admitted to the hospital with approximately 1 week of Covid-like symptoms, but experienced progressive decline in her respiratory status. The patient did eventually require intubation and invasive mechanical ventilatory support, but was able to be successfully extubated after being treated with remdesivir and Decadron. Plan to continue to wean supplemental oxygen as tolerated. Encourage incentive spirometer use and mobilize patient as tolerated. 2. Acute kidney injury Resolved. Likely prerenal in etiology as creatinine normalized with volume expansion. Fluids have been discontinued at this time. Plan to continue to monitor urine output. No current indication for renal replacement therapy. 3. Obesity/hypertension/depression Complicates care, management, recovery and prognosis. Continue home medications as indicated. This note was generated with [employer] dictation software. It may contain incorrect words, spelling, and punctuation that were not noted in checking the note before signing. Subjective Subjective The patient was seen and examined at the bedside this morning. Events from the last 24 hours have been reviewed. The patient is currently afebrile, hemodynamically stable and maintaining appropriate oxygen saturations on 3 L/min via nasal cannula. The patient has been bradycardic overnight. She is currently documented to be overall net +5.3 L for the hospital admission. The patient has completed a treatment course of remdesivir and remains on Decadron and twice daily Lovenox. The patient feels well overall this morning and denies any shortness of breath. Objective Data Objective Data The patient's most recent lab work, culture data and imaging studies have all been personally reviewed. MRSA screen was negative. Coronavirus PCR was positive on February 11. Blood and sputum cultures have shown no growth to date. Vital Signs: Vital Signs Temp Pulse Resp BP Pulse Ox 98.3 F 53 L 14 179/86 H 97 02/18/21 04:00 02/18/21 04:00 02/18/21 04:00 02/18/21 04:00 02/18/21 04:00 Oxygen Flow Rate (L/min) 3 Oxygen Delivery Method Nasal Cannula Weight: 168 lb 14.4 oz Body Mass Index (BMI) 32.9 Intake & Output: Intake and Output for Last 24 Hours 02/16/21 02/17/21 02/18/21 23:59 23:59 23:59 Intake Total 2075.12 / 2576.12 2441 / 2441 100 / 100 Output Total 4650 / 5050 1550 / 1775 475 / 475 Balance -2574.88 / -2473.88 891 / 666 -375 / -375 Lab / Micro Data Attestation: I reviewed the patient's lab results. Result Diagrams: 02/18/21 05:05 02/18/21 05:05 Labs: Laboratory Results - last 24 hr 02/17/21 02/17/21 11:00 11:00 WBC 12.8 H RBC 4.21 Hgb 12.5 Hct 38.0 MCV 90.3 MCH 29.7 MCHC 32.9 RDW Std Deviation 42.3 RDW Coeff of [place] 12.8 Plt Count 529 H MPV 8.5 Sodium 139 Potassium 3.5 Chloride 99 Carbon Dioxide 33.0 H Anion Gap 7 BUN 28 H Creatinine 0.73 Estim Creat Clear Calc 68.06 Est GFR (MDRD) Af Amer 105 Est GFR (MDRD) Non-Af 87 BUN/Creatinine Ratio 38.2 H Glucose 104 Calcium 8.9 Total Bilirubin 0.60 AST 52 H ALT 119 H Alkaline Phosphatase 62 Total Protein 7.1 Albumin 2.7 L Globulin 4.4 H Albumin/Globulin Ratio 0.6 L Micro: Microbiology 02/11/21 18:22 Blood Culture (Wb) - Anticubital Right Blood Culture - Final No growth in 5 days. 02/11/21 18:10 Blood Culture (Wb) - Anticubital Left Blood Culture - Final No growth in 5 days. 02/13/21 09:36 Sputum, Induced/Lukens Gram Stain - Final 02/13/21 09:36 Sputum, Induced/Lukens Respiratory Culture - Final Streptococcus agalactiae (B) Mixed Donna 02/11/21 15:35 Mucosa - Nose SARS-CoV-2 Antigen (Rapid) - Final Physical Exam Const alert, oriented x3 and no apparent distress General Appearance: cooperative HEENT normocephalic, head/scalp atraumatic and moist oral mucous membranes Eyes PERRL, EOMs intact bilaterally and conjunctivae normal Neck supple General: trachea midline Resp normal respiratory effort Auscultation: diminished lung sounds; Negative for rales, rhonchi or wheezes Cardio regular rate and regular rhythm GI normal to inspection, nondistended, normoactive bowel sounds Extremity no clubbing, cyanosis or edema Skin no rashes or lesions noted Neuro CN's II-XII intact bilaterally, moves all extremities and no focal motor deficits Psych cooperative and affect normal Charges/Coding Visit Charges Inpatient E&M: 22613 Subs Hosp L2
[2021-02-18 05:50] LABS: Hematocrit 38.1 % (37-47); Hemoglobin 12.5 g/dL (12.0-15.0); Mean Corp Hgb Conc 32.8 g/dL (32-36); Mean Corpuscular Volume 91.4 fL (81-99); Mean Platelet Vol. 8.7 fl (6.2-12.0); POSITIVE COUNT YES; POSITIVE MORPHOLOGY YES; Platelet Count 499 K/mm3 (150-450); RBC Distribution Width CV 12.6 % (11.6-14.6); RBC Distribution Width SD 42.4 fl (35.1-43.9); Red Blood Count 4.17 M/mm3 (4.2-5.4); White Blood Count 9.9 K/mm3 (4.4-11.0)
[2021-02-18 05:53] LABS: Differential Indicated MANUAL DIFF
[2021-02-18 06:01] LABS: Anion Gap 4 (5-15); BUN 22 mg/dL (7-18); BUN/Creat Ratio 38.9 RATIO (10-20); Calcium,Total 8.6 mg/dL (8.5-10.1); Chloride 104 mmol/L (98-107); Creatinine, Serum 0.57 mg/dL (0.55-1.02); EST Glomerular Filtration Rate 117 mL/min (>60); Est Glom Filt Rate - Afr Amer 142 mL/min (>60); Estimated Creatinine Clearance 87.16 ml/min; Glucose 106 mg/dL (74-106); Potassium 4.7 mmol/L (3.5-5.1); Sodium Level 139 mmol/L (136-145)
[2021-02-18] MEDS: Labetalol (Prefilled) 20 MG/4 ML IV (06:07)
[2021-02-18 06:26] LABS: Absolute Neutrophil Count 7.4 X10^3/uL (2.0-7.7); Lymphocyte 15 % (19-41); Metamyelocyte 4 % (0-1); Monocyte 5 % (0-10); Myelocyte 1 % (0-0); Neutrophil-Band 5 % (0-5); Neutrophil-Segmented 70 % (47-70); Total Cells Counted 100 (MANUAL DIFF)
[2021-02-18 06:27] LABS: Platelet Estimate ADEQUATE (ADEQ); Red Cell Morphology NORM C+C NORMAL (NORM C&C)
--- NOTE | 2021-02-18 07:10 | PN.HOSP_ITS ---
Subjective Subjective Patient seen, had a relatively uneventful night. Remains on supplemental oxygen with plans to wean off oxygen with possible discharge home with home oxygen Objective Data Objective Data Vital Signs: Vital Signs Temp Pulse Resp BP Pulse Ox 98.3 F 54 L 14 224/83 H 97 02/18/21 04:00 02/18/21 06:56 02/18/21 04:00 02/18/21 06:56 02/18/21 04:00 Oxygen Flow Rate (L/min) 3 Oxygen Delivery Method Nasal Cannula Weight: 76.612 kg Body Mass Index (BMI) 32.9 Intake & Output: Intake and Output for Last 24 Hours 02/16/21 02/17/21 02/18/21 23:59 23:59 23:59 Intake Total 2075.12 / 2576.12 2441 / 2441 100 / 100 Output Total 4650 / 5050 1550 / 1775 475 / 475 Balance -2574.88 / -2473.88 891 / 666 -375 / -375 Lab / Micro Data Result Diagrams: 02/18/21 05:05 02/18/21 05:05 Labs: Laboratory Results - last 24 hr 02/17/21 02/17/21 02/18/21 11:00 11:00 05:05 WBC 12.8 H 9.9 RBC 4.21 4.17 L Hgb 12.5 12.5 Hct 38.0 38.1 MCV 90.3 91.4 MCH 29.7 30.0 MCHC 32.9 32.8 RDW Std Deviation 42.3 42.4 RDW Coeff of [place] 12.8 12.6 Plt Count 529 H 499 H MPV 8.5 8.7 Neut % (Auto) Not Reportable Absolute Neuts (auto) 7.4 Absolute Lymphs (auto) 1.50 Total Counted 100 Neutrophils % (Manual) 70 Band Neutrophils % 5 Lymphocytes % (Manual) 15 L Monocytes % (Manual) 5 Metamyelocytes % 4 H Myelocytes % 1 H Diff Path Review May foll Platelet Estimate ADEQUATE RBC Morphology NORM C+C Sodium 139 Potassium 3.5 Chloride 99 Carbon Dioxide 33.0 H Anion Gap 7 BUN 28 H Creatinine 0.73 Estim Creat Clear Calc 68.06 Est GFR (MDRD) Af Amer 105 Est GFR (MDRD) Non-Af 87 BUN/Creatinine Ratio 38.2 H Glucose 104 Calcium 8.9 Total Bilirubin 0.60 AST 52 H ALT 119 H Alkaline Phosphatase 62 Total Protein 7.1 Albumin 2.7 L Globulin 4.4 H Albumin/Globulin Ratio 0.6 L 02/18/21 05:05 WBC RBC Hgb Hct MCV MCH MCHC RDW Std Deviation RDW Coeff of [place] Plt Count MPV Neut % (Auto) Absolute Neuts (auto) Absolute Lymphs (auto) Total Counted Neutrophils % (Manual) Band Neutrophils % Lymphocytes % (Manual) Monocytes % (Manual) Metamyelocytes % Myelocytes % Diff Path Review Platelet Estimate RBC Morphology Sodium 139 Potassium 4.7 Chloride 104 Carbon Dioxide 31.0 Anion Gap 4 L BUN 22 H Creatinine 0.57 Estim Creat Clear Calc 87.16 Est GFR (MDRD) Af Amer 142 Est GFR (MDRD) Non-Af 117 BUN/Creatinine Ratio 38.9 H Glucose 106 Calcium 8.6 Total Bilirubin AST ALT Alkaline Phosphatase Total Protein Albumin Globulin Albumin/Globulin Ratio Micro: Microbiology 02/11/21 18:22 Blood Culture (Wb) - Anticubital Right Blood Culture - Final No growth in 5 days. 02/11/21 18:10 Blood Culture (Wb) - Anticubital Left Blood Culture - Final No growth in 5 days. 02/13/21 09:36 Sputum, Induced/Lukens Gram Stain - Final 02/13/21 09:36 Sputum, Induced/Lukens Respiratory Culture - Final Streptococcus agalactiae (B) Mixed Donna 02/11/21 15:35 Mucosa - Nose SARS-CoV-2 Antigen (Rapid) - Final Physical Exam Narrative GENERAL: Awake HEENT: Atraumatic; EYES; Anicteric, Normal Conjunctiva NECK; supple, normal thyroid, RESPIRATORY: Diminished to auscultation CARDIOVASCULAR: Regular S1 S2, GI: soft, normoactive bowel sounds, : No Renal angle tenderness; EXTREMITIES: No edema, no clubbing, MUSCULOSKELETAL: no muscle waisting NEURO: Awake; no lateralizing signs. SKIN: No Rash PSYCH; Flat affect Assessment & Plan Assessment/Plan (1) COVID-19: (2) ROSALINO (acute kidney injury): (3) Hypokalemia: (4) Hypoxia: PLAN: Patient is a 55-year-old lady who presented withCough fever and generalized weakness with prior Covid exposure. Patient apparently has not been vaccinated. Her assessment on admission was consistent with acute COVID-19 pneumonitis admitted to intensive care unit for further management 1. Acute hypoxic respiratory failure secondary to SARS-CoV-2 pneumonia ?Admitted to intensive care unit managed with supplemental oxygen as well as p.o. Decadron and supportive management. Attempt to wean patient off oxygen was unsuccessful. Patient placed back on supplemental oxygen. Did encourage use of incentive spirometry ?02/13/2021. Chest x-ray obtained last night demonstrated progressive bilateral pulmonary infiltrates worse than the right infrahilar region. Patient breathing status also deteriorated resulting in patient being placed on Airvo. Case was discussed with pulmonary medicine regarding initiation of remdesivir. Currently on antibiotic therapy for suspected superimposed bacterial infection. Plan is to have the family discussion regarding patient being possibly placed on the ventilator -02/14/2021 Patient clinical condition deteriorated the day prior resulting in patient being intubated and placed on the vent. Was also started on remdesivir. Attempts at weaning this a.m. unsuccessful ?02/15/2021 patient remains on the vent currently undergoing weaning trial. -02/16/2021;Patient seen successfully weaned off the vent this a.m. 02/17/2021; patient seen currently on nasal cannula. Oxygen saturation in the high 90s. Did encourage the use of incentive spirometry -02/18/2021; Patient seen, had a relatively uneventful night. Remains on perdomo pplemental oxygen with plans to wean off oxygen with possible discharge home with home oxygen 2. Hypotension ?Present on admission patient resuscitated with IV fluid her antihypertensives held -02/15/2021; resolved 3. Acute kidney injury ?Secondary to dehydration and hypotension resuscitated with IV fluids kidney function back to baseline 4. Mild hyponatremia ?Secondary to hypovolemic hyponatremia managed with IV fluid 5. Hypokalemia -Corrected per protocol 6. Obesity with BMI of 31.8 ?Weight loss advised 7. Essential hypertension ?Antihypertensives on hold in view of patient presenting with hypotension -02/17/2021; resumed antihypertensives 8. Depression ?Patient is on SSRI 9. DVT prophylaxis ?Lovenox Prognosis; guarded Charges/Coding Visit Charges Inpatient E&M: 69639 Subs Hosp L2
[2021-02-18] MEDS: dexAMETHasone 2 MG TABLET 6 MG PO (08:51)
[2021-02-18] MEDS: hydroCHLOROthiazide 12.5mg 12.5 MG PO (08:52)
[2021-02-18] MEDS: PARoxetine 10 MG Tablet 15 MG PO (08:52)
[2021-02-18] MEDS: Potassium Chloride Oral Tablet 20 MEQ PO (08:52)
[2021-02-18] MEDS: Lisinopril 20 MG Tablet PO (08:52)
[2021-02-18] MEDS: Enoxaparin 40 MG/0.4 ML Syringe SC (08:52)
--- NOTE | 2021-02-18 09:32 | PCM.DC.SUM ---
Providers Date of Admission: 02/11/21 Primary Care Physician: Rocio Primary Care Phys Consultations 02/13/21 05:46 Consult: Composing Machine Operator / Pulmonary Medicine Routine Consulting Provider: Pulmonary Medicine ayse Hymera Reason for Consult: Worsening Respiratory Status EMERGENT Consult: No Notified: Yes Date Notified: 02/13/21 Time Notified: 05:47 Method of Notification: Text 02/13/21 10:18 Consult: Infectious Disease Routine Consulting Provider: Maldonado Sosa Reason for Consult: COVID+ Respiratory Failure EMERGENT Consult: No Notified: Yes Date Notified: 02/13/21 Time Notified: 10:48 Method of Notification: Text Reason For Visit: PNA Diagnosis Discharge Diagnosis (1) COVID-19: Status: Acute Code(s): U07.1 - COVID-19 (2) ROSALINO (acute kidney injury): Status: Acute Code(s): N17.9 - Acute kidney failure, unspecified (3) Hypokalemia: Status: Acute Code(s): E87.6 - Hypokalemia (4) Hypoxia: Status: Acute Code(s): R09.02 - Hypoxemia Medications at Discharge Home Medications dexamethasone [Decadron] 6 mg PO DAILY #5 tab 02/11/21 lisinopril-hydrochlorothiazide 1 tab PO DAILY 02/11/21 paroxetine HCl [Paxil] 15 mg PO DAILY 02/11/21 Hospital Course Summary of Care Provided Minutes Spent on Discharge: 50 Hospital Course: Patient is a 55-year-old lady who presented withCough fever and generalized weakness with prior Covid exposure. Patient apparently has not been vaccinated. Her assessment on admission was consistent with acute COVID-19 pneumonitis admitted to intensive care unit for further management 1. Acute hypoxic respiratory failure secondary to SARS-CoV-2 pneumonia ?Admitted to intensive care unit managed with supplemental oxygen as well as p.o. Decadron and supportive management. Attempt to wean patient off oxygen was unsuccessful. Patient placed back on supplemental oxygen. Did encourage use of incentive spirometry ?02/13/2021. Chest x-ray obtained last night demonstrated progressive bilateral pulmonary infiltrates worse than the right infrahilar region. Patient breathing status also deteriorated resulting in patient being placed on Airvo. Case was discussed with pulmonary medicine regarding initiation of remdesivir. Currently on antibiotic therapy for suspected superimposed bacterial infection. Plan is to have the family discussion regarding patient being possibly placed on the ventilator -02/14/2021 Patient clinical condition deteriorated the day prior resulting in patient being intubated and placed on the vent. Was also started on remdesivir. Attempts at weaning this a.m. unsuccessful ?02/15/2021 patient remains on the vent currently undergoing weaning trial. -02/16/2021;Patient seen successfully weaned off the vent this a.m. 02/17/2021; patient seen currently on nasal cannula. Oxygen saturation in the high 90s. Did encourage the use of incentive spirometry -02/18/2021; Patient seen, had a relatively uneventful night. Remains on supplemental oxygen with plans to wean off oxygen with possible discharge home with home oxygen -02/18/2021 patient was assessed for home oxygen which she did qualify she would need portability since he is mobile both at home as well as in the community 2. Hypotension ?Present on admission patient resuscitated with IV fluid her antihypertensives held -02/15/2021; resolved 3. Acute kidney injury ?Secondary to dehydration and hypotension resuscitated with IV fluids kidney function back to baseline 4. Mild hyponatremia ?Secondary to hypovolemic hyponatremia managed with IV fluid 5. Hypokalemia -Corrected per protocol 6. Obesity with BMI of 31.8 ?Weight loss advised 7. Essential hypertension ?Antihypertensives on hold in view of patient presenting with hypotension -02/17/2021; resumed antihypertensives 8. Depression ?Patient is on SSRI 9. DVT prophylaxis ?Lovenox Physical Exam Narrative GENERAL: Awake HEENT: Atraumatic; EYES; Anicteric, Normal Conjunctiva NECK; supple, normal thyroid, RESPIRATORY: Diminished to auscultation CARDIOVASCULAR: Regular S1 S2, GI: soft, normoactive bowel sounds, : No Renal angle tenderness; EXTREMITIES: No edema, no clubbing, MUSCULOSKELETAL: no muscle waisting NEURO: Awake; no lateralizing signs. SKIN: No Rash PSYCH; Flat affect Weight / BMI Weight Weight: 76.612 kg Body Mass Index (BMI) 32.9 ABG / Lab / Microbiology Data Result Diagrams: 02/18/21 05:05 02/18/21 05:05 Laboratory: Laboratory Results - last 24 hr 02/17/21 02/17/21 02/18/21 11:00 11:00 05:05 WBC 12.8 H 9.9 RBC 4.21 4.17 L Hgb 12.5 12.5 Hct 38.0 38.1 MCV 90.3 91.4 MCH 29.7 30.0 MCHC 32.9 32.8 RDW Std Deviation 42.3 42.4 RDW Coeff of [place] 12.8 12.6 Plt Count 529 H 499 H MPV 8.5 8.7 Neut % (Auto) Not Reportable Absolute Neuts (auto) 7.4 Absolute Lymphs (auto) 1.50 Total Counted 100 Neutrophils % (Manual) 70 Band Neutrophils % 5 Lymphocytes % (Manual) 15 L Monocytes % (Manual) 5 Metamyelocytes % 4 H Myelocytes % 1 H Diff Path Review May foll Platelet Estimate ADEQUATE RBC Morphology NORM C+C Sodium 139 Potassium 3.5 Chloride 99 Carbon Dioxide 33.0 H Anion Gap 7 BUN 28 H Creatinine 0.73 Estim Creat Clear Calc 68.06 Est GFR (MDRD) Af Amer 105 Est GFR (MDRD) Non-Af 87 BUN/Creatinine Ratio 38.2 H Glucose 104 Calcium 8.9 Total Bilirubin 0.60 AST 52 H ALT 119 H Alkaline Phosphatase 62 Total Protein 7.1 Albumin 2.7 L Globulin 4.4 H Albumin/Globulin Ratio 0.6 L 02/18/21 05:05 WBC RBC Hgb Hct MCV MCH MCHC RDW Std Deviation RDW Coeff of [place] Plt Count MPV Neut % (Auto) Absolute Neuts (auto) Absolute Lymphs (auto) Total Counted Neutrophils % (Manual) Band Neutrophils % Lymphocytes % (Manual) Monocytes % (Manual) Metamyelocytes % Myelocytes % Diff Path Review Platelet Estimate RBC Morphology Sodium 139 Potassium 4.7 Chloride 104 Carbon Dioxide 31.0 Anion Gap 4 L BUN 22 H Creatinine 0.57 Estim Creat Clear Calc 87.16 Est GFR (MDRD) Af Amer 142 Est GFR (MDRD) Non-Af 117 BUN/Creatinine Ratio 38.9 H Glucose 106 Calcium 8.6 Total Bilirubin AST ALT Alkaline Phosphatase Total Protein Albumin Globulin Albumin/Globulin Ratio Microbiology: Microbiology 02/11/21 18:22 Blood Culture - Final Blood Culture (Wb) - Anticubital Right No growth in 5 days. 02/11/21 18:10 Blood Culture - Final Blood Culture (Wb) - Anticubital Left No growth in 5 days. Microbiology 02/11/21 18:22 Blood Culture (Wb) - Anticubital Right Blood Culture - Final No growth in 5 days. 02/11/21 18:10 Blood Culture (Wb) - Anticubital Left Blood Culture - Final No growth in 5 days. 02/13/21 09:36 Sputum, Induced/Lukens Gram Stain - Final 02/13/21 09:36 Sputum, Induced/Lukens Respiratory Culture - Final Streptococcus agalactiae (B) Mixed Donna 02/11/21 15:35 Mucosa - Nose SARS-CoV-2 Antigen (Rapid) - Final D/C Instructions Discharge Diet: No restrictions Discharge Activity: Return to Normal Activity Call your doctor if you observe: Fever of 101 or Higher, Shortness of breath, Fainting spells and Chest pain Additional Dressing/Incision Instructions: Patient to Marya at home for additional 14 days Meaningful Use Info Meaningful Use Diagnoses (Choose all that apply): None applicable Discharge Plan Admission Admit Date/Time: 02/11/21 18:32 Primary Reason for Your Visit: SARS-CoV-2 pneumonia Attending Provider: Oniel Jasmine Primary Care Provider: Care Physician,No Primary Consulting Providers: Jakbu Laguna ; Herbie Madison ; Kyleigh Sanchez COMPLAINT INSPECTOR ; Maldonado Sosa Instructions Patient Instructions: Coronavirus Disease 2019 (COVID-19): Caring for Yourself or Others Discharge Orders/Prescriptions Prescriptions: New dexamethasone [Decadron] 6 mg tablet 6 mg PO DAILY Qty: 5 RF: 0 Continued paroxetine HCl [Paxil] 10 mg Tablet 15 mg PO DAILY RF: 0 lisinopril-hydrochlorothiazide 20-12.5 mg Tablet 1 tab PO DAILY RF: 0 Referrals / Follow Up: Deejay Vidal MD [NON-STAFF] - Within 2 Weeks Care Physician,No Primary [Primary Care Provider] - Disposition Disposition (needs filled in before D/C Order can be placed): Home, self care Charges/Coding Visit Charges Inpatient E&M: 43171 Disch Hosp
--- NOTE | 2021-02-18 09:36 | PCM.DC ---
Discharge Instructions Diet Discharge Diet: No restrictions Dressing / Incision Call your doctor if you observe: Fever of 101 or Higher, Shortness of breath, Fainting spells and Chest pain Additional Dressing/Incision Instructions:: Patient to Marya at home for additional 14 days Follow Up Care Test Results: Test results from this visit will be discussed in further detail at your follow-up appointment, if applicable. Discharge Plan Admission Admit Date/Time: 02/11/21 18:32 Primary Reason for Your Visit: SARS-CoV-2 pneumonia Attending Provider: Oniel Jasmine Primary Care Provider: Care Physician,No Primary Consulting Providers: Jakub Laguna ; Herbie Madison ; Kyleigh Sanchez NP ; Maldonado Sosa Instructions Patient Instructions: Coronavirus Disease 2019 (COVID-19): Caring for Yourself or Others Discharge Orders/Prescriptions Prescriptions: New dexamethasone [Decadron] 6 mg tablet 6 mg PO DAILY Qty: 5 RF: 0 Continued paroxetine HCl [Paxil] 10 mg Tablet 15 mg PO DAILY RF: 0 lisinopril-hydrochlorothiazide 20-12.5 mg Tablet 1 tab PO DAILY RF: 0 Referrals / Follow Up: Deejay Vidal MD [NON-STAFF] - Within 2 Weeks Care Physician,No Primary [Primary Care Provider] - Disposition Disposition (needs filled in before D/C Order can be placed): Home, self care
[2021-02-19 12:45] LABS: Pathologist Review Reviewed
--- NOTE | 2021-02-19 16:16 | CASEMGMT ---
KELVIN CABRERA Discharge Follow-up Phone Call: DEVORA: Naseem Strata: 2 Call Date: 02/19/21 Discharge Date: 02/16/21 Time of Call: 1610 Duration: 7 min Admitting Diagnosis: Pneumonia, covid KELVIN CABRERA completed follow-up phone call after recent hospitalization. Patient states she is doing good and wearing her oxygen at home. Patient states she checked her BP at home and concerned it was low. RN CM encourage patient to check both arms, morning and night and keep log of BPs. Patient has follow-up appt with PCP. RN CM encouraged patient to call PCP with concerns about blood pressure. Patient voiced understanding. Patient continues to isolate at home. RN CM also encourage patient to get pulse ox to check oxygen level. Patient had no further questions or concerns at this time.
== END 2021-02-18 12:10 | disposition home or self-care (01) | DRG 208 ==
LOC: ED 17:45 → ICU 02-12 07:19
PROVIDERS: Internal Medicine Critical Care Medicine; Internal Medicine Infectious Disease; Admitting Provider Internal Medicine; Emergency Provider Emergency Medicine; Visit Provider Internal Medicine
DX: U07.1 COVID-19 (principal); J12.82 Pneumonia due to coronavirus disease 2019; J96.01 Acute respiratory failure with hypoxia; E87.1 Hypo-osmolality and hyponatremia; N17.9 Acute kidney failure, unspecified; E66.9 Obesity, unspecified; Z68.31 Body mass index [BMI] 31.0-31.9, adult; E86.0 Dehydration; E86.1 Hypovolemia; E87.6 Hypokalemia; F32.9 Major depressive disorder, single episode, unspecified; F41.9 Anxiety disorder, unspecified; I10 Essential (primary) hypertension; I95.9 Hypotension, unspecified; Z79.899 Other long term (current) drug therapy
CPT/HCPCS: 31500; 31720; 36415; 36600; 71045; 80048; 80053; 82550; 82803; 83605; 83735; 83880; 84075; 84100; 84145; 84478; 85025; 85027; 85379; 87040; 87070; 87077; 87186; 87205; 87426; 87635; 87641; 94002; 94003; 94660; 97110; 97162; 97166; 97530; 97535; 97802; 97803; 99251; 99285; J7030; J7040; J7050; U0005; A4216; G0463; J0330; J1940; J3010; U0003

== ENCOUNTER 2021-03-01 21:12 | Emergency (ER) | payer SELFPAY ==
[2021-02-14 10:25] VITALS: BMI 32.9
[2021-03-01 21:12] VITALS: BP 171/105; PULSE 103; RESP 18; TEMP 37.1; O2SAT 97; BMI 27.2
--- NOTE | 2021-03-01 22:26 | EDS_ITS ---
HPI History of Present Illness Chief Complaint: Hypertension Narrative Narrative: Patient was on blood pressure medication for quite some time, she developed Covid requiring hospitalization for hypoxia at which time her blood pressure was low, she was not sent home on any antihypertensive she presents today with hypertension and a slight headache. She has no chest pain shortness of breath fevers or chills. No cough or congestion. Normal urinary output. No flank pain. PFSH PFS Medical History Anxiety Depression Hypertension Home Medications lisinopril-hydrochlorothiazide 1 tab PO DAILY 02/11/21 [History Last Taken Unknown] paroxetine HCl [Paxil] 15 mg PO DAILY 02/11/21 [History Last Taken Unknown] Allergy/AdvReac Type Severity Reaction Status Date / Time No Known Allergies Allergy Verified 03/01/21 21:15 Social History Smoking Status: Never smoker ROS ROS ED ROS Narrative Past medical history: Hypertension otherwise no other medical problems Medications: Reviewed Social history: Noncontributory Review of systems: All systems negative except as indicated General: No fever Eyes: No visual changes ENT: No upper airway congestion, normal voice Neck: No neck pain Cardiovascular: No chest pain Respiratory: No shortness of breath or cough Gastrointestinal: No abdominal pain, nausea vomiting or diarrhea Genitourinary: No dysuria Musculoskeletal: Denies myalgias no difficulty with ambulation Skin: No rash Neurological: No memory loss, confusion or any focal weakness. Gradual onset of headache that started earlier today it is slight Psych: No recent behavioral changes Hematologic: No easy bleeding or easy bruising EXAM Physical Exam Narrative Exam Narrative: Physical exam General: Well nourished, Well developed, No Acute Distress Head: Normocephalic, Atraumatic Eyes: Conjunctiva not pale ENT: Moist mucous membranes Neck: Supple, Nontender, No lymphadenopathy Cardiovascular: Regular rate, Regular rhythm Respiratory: No distress, CTA bilaterally Abdomen: Soft, Nontender, Nondistended Back: Nontender, Normal Inspection. Negative for: CVA tenderness Extremities: Nontender, No edema Skin: Normal color, No rash Neurological: Alert, Normal Strength, Normal Sensation Psychological: Normal affect Const Vital Signs: 03/01/21 21:12 03/01/21 22:03/01/21 23:06 Temperature 98.8 F Temperature Source Temporal Pulse Rate 103 H Respiratory Rate 18 Respiratory Effort Normal Respiratory Pattern Normal Blood Pressure 171/105 H 185/93 H Blood Pressure Mean 127 123 Pulse Ox 97 Oxygen Delivery Method Room Air MDM MDM MDM Narrative Medical decision making narrative: Patient received hydralazine, otherwise she has a normal work-up her pressure significantly improved. I told her to resume her medications as before. Otherwise she can be discharged in stable condition. Lab Data Labs: Laboratory Results - last 24 hr 03/01/21 03/01/21 22:30 22:30 WBC 5.7 RBC 3.94 L Hgb 11.7 L Hct 35.0 L MCV 88.8 MCH 29.7 MCHC 33.4 RDW Std Deviation 41.1 RDW Coeff of [place] 13.0 Plt Count 313 MPV 8.8 Immature Gran % (Auto) 0.500 Neut % (Auto) 65.8 Lymph % (Auto) 22.3 [place] % (Auto) 9.2 Eos % (Auto) 1.1 Baso % (Auto) 1.1 H Absolute Neuts (auto) 3.7 Absolute Lymphs (auto) 1.26 Nucleated RBC % 0 Sodium 139 Potassium 3.2 L Chloride 105 Carbon Dioxide 28.0 Anion Gap 6 BUN 15 Creatinine 0.86 Estim Creat Clear Calc 57.77 Est GFR (MDRD) Af Amer 88 Est GFR (MDRD) Non-Af 73 BUN/Creatinine Ratio 17.5 Glucose 130 H Calcium 9.1 Total Bilirubin 0.30 AST 19 ALT 36 Alkaline Phosphatase 69 Total Protein 7.4 Albumin 3.5 Globulin 3.9 Albumin/Globulin Ratio 0.9 Discharge Plan Triage Chief Complaint: Hypertension ED Provider: Lalo Marx Dx/Rx/DC Orders Clinical Impression: Hypertension Instructions: ED Hypertension, Established Prescriptions: No Action paroxetine HCl [Paxil] 10 mg Tablet 15 mg PO DAILY RF: 0 lisinopril-hydrochlorothiazide 20-12.5 mg Tablet 1 tab PO DAILY RF: 0 Primary Care Provider: Care Physician,No Primary Referrals: Care Physician,No Primary [Primary Care Provider] - 3-5 Days Disposition Disposition: Home, Self Care
[2021-03-01] MEDS: hydrALAZINE 20 MG/ML Vial 10 MG IV (22:34)
[2021-03-01 22:47] LABS: Absolute Lymphocyte Count 1.26 X10^3/uL (0.83-4.51); Absolute Neutrophil Count 3.7 X10^3/uL (2.0-7.7); Basophil# 0.06 X10^3/uL; Basophil% 1.1 % (0-1); Eosinophil# 0.06 X10^3/uL; Eosinophils% 1.1 % (0-5); Hemoglobin 11.7 g/dL (12.0-15.0); Lymphocyte # 1.26 X10^3/ul (0.83-4.51); Lymphocyte % 22.3 % (19-41); Mean Corp Hgb Conc 33.4 g/dL (32-36); Mean Corpuscular Hgb 29.7 pg (27.0-32.0); Mean Corpuscular Volume 88.8 fL (81-99); Mean Platelet Vol. 8.8 fl (6.2-12.0); Monocyte# 0.52 X10^3/uL; Monocyte% 9.2 % (0-10); NRBC Flagged by Analyzer 0 % (0-5); Neutrophil # 3.72 X10^3/uL (2.7-7.7); Neutrophil % 65.8 % (47-70); Platelet Count 313 K/mm3 (150-450); RBC Distribution Width SD 41.1 fl (35.1-43.9); Red Blood Count 3.94 M/mm3 (4.2-5.4); White Blood Count 5.7 K/mm3 (4.4-11.0)
[2021-03-01 23:04] LABS: ALB/GLOB Ratio 0.9 RATIO (0.9-2.4); AST(SGOT) 19 U/L (15-37); Alanine Aminotransfer ALT/SGPT 36 U/L (13-56); Albumin, Serum 3.5 g/dL (3.2-5.0); Alkaline Phosphatase 69 U/L (45-117); Anion Gap 6 (5-15); BUN 15 mg/dL (7-18); BUN/Creat Ratio 17.5 RATIO (10-20); Calcium,Total 9.1 mg/dL (8.5-10.1); Chloride 105 mmol/L (98-107); Creatinine, Serum 0.86 mg/dL (0.55-1.02); EST Glomerular Filtration Rate 73 mL/min (>60); Est Glom Filt Rate - Afr Amer 88 mL/min (>60); Estimated Creatinine Clearance 57.77 ml/min; Globulin 3.9 g/dL (2.2-4.2); Glucose 130 mg/dL (74-106); Potassium 3.2 mmol/L (3.5-5.1); Protein, Total 7.4 g/dL (6.4-8.2); Sodium Level 139 mmol/L (136-145)
[2021-03-01 23:06] VITALS: BP 185/93
[2021-03-01 23:29] VITALS: BP 155/77
== END 2021-03-01 23:36 | disposition home or self-care (01) ==
PROVIDERS: Emergency Provider Emergency Medicine
DX: I10 Essential (primary) hypertension (principal); F41.9 Anxiety disorder, unspecified; F32.9 Major depressive disorder, single episode, unspecified; Z86.16 Personal history of COVID-19; Z79.899 Other long term (current) drug therapy
CPT/HCPCS: 80053; 85025; 96361; 96374; 99282; J7040; A4216